=== PATIENT | female | born 1930 | race Caucasian/White ===

== ENCOUNTER 2019-07-29 14:32 | Inpatient (IN) ==
[2019-07-29] MEDS ORDERED: IPRATROPIUM/ALBUTEROL 3 ML AMPUL.NEB NEB ONE ×2 (14:37→16:55)
[2019-07-29 15:23] LABS: Basophils # (Auto) 0.05 K/mcL (0.00-0.30); Basophils % (Auto) 0.4 % (0.0-2.0); Eosinophils # (Auto) 0.05 K/mcL (0.00-0.70); Eosinophils % (Auto) 0.4 % (0.0-7.0); Granulocytes % (Auto) 77.8 % (38.0-78.0); Hematocrit 39.6 % (34.1-44.9); Hemoglobin 11.3 g/dL (11.2-15.7); Lymphocytes # (Auto) 1.41 K/mcL (1.50-4.80); Lymphocytes % (Auto) 11.7 % (15.5-49.0); Mean Cell Volume 96.1 fL (80.0-100.0); Mean Corpuscular HGB Conc 28.5 g/dL (31.0-36.0); Mean Platelet Volume 10.9 fL (7.4-10.4); Monocytes # (Auto) 1.17 K/mcL (0.10-0.90); Monocytes % (Auto) 9.7 % (1.0-12.0); Platelet Count 174 K/mcL (140-440); RBC 4.12 M/mcL (3.59-5.38); Red Cell Distribution Width 22.9 % (11.5-14.5); WBC 12.1 K/mcL (4.50-11.00)
[2019-07-29 15:38] LABS: ALT/SGPT 19 U/l (0-40); AST/SGOT 26 U/l (0-37); Albumin 4.2 gm/dL (3.2-5.2); Albumin/Globulin Ratio 1.1 (1.0-2.3); Alkaline Phosphatase 225 U/L (39-117); Bilirubin,Total 1.4 mg/dL (0.0-1.0); Blood Urea Nitrogen 17 mg/dl (8-23); Calcium 9.6 mg/dl (8.6-10.4); Carbon Dioxide 30 mmol/L (22-30); Chloride 96 mmol/L (96-108); Glomerular Filtration Rate 37; Glucose 149 mg/dL (70-105)
--- NOTE | 2019-07-29 15:52 | Emergency Department Note ---
SOB HPI - General Chief Complaint: Shortness of Breath/Dyspnea Stated Complaint: shortness of breath Time Seen by Provider: 07/29/19 15:37 Source: patient Mode of arrival: wheelchair Limitations: no limitations - History of Present Illness 89-year old patient presenting with chief complaint of dyspnea. Patient's dyspnea arose over the course of several days. Patient with associated symptoms of cough, and orthopnea. Pt was seen Friday and with excellent benefit. Pt arrives after cardiology appointment today recommended she be evaluated in the ED. Past medical history is significant for cardiovascular disease/CHF, deconditioning. This patient's dyspnea was exacerbated by exertion within 50-100 feet of walking or several minutes of exercise. Also was associated with a nocturnal component. Symptoms are continuous. Additional associated symptoms such as cough, sputum production, nasal congestion, chest pain, peripheral edema, joint swelling were also inquired and negative pt is having generalized weakness. Patient primarily with dyspnea sensation of air hunger/sensation of suffocation. - Related Data Home Medications Medication Instructions Recorded Confirmed Acetaminophen [Shake That Ache] 500 mg PO PRN PRN 03/06/16 07/29/19 Atorvastatin [Lipitor] 40 mg PO HS 03/06/16 07/29/19 Fexofenadine [Kisha] 180 mg PO PRN PRN 03/06/16 07/29/19 Nitroglycerin [Nitrostat] 0.4 mg SL PRN PRN 03/06/16 07/29/19 Omeprazole [PriLOSEC] 20 mg PO DAILY 03/06/16 07/29/19 aspirin 81 mg tablet,delayed 162 mg PO QDAY 02/19/19 07/29/19 release baclofen 10 mg tablet 10 mg PO BID 02/19/19 07/29/19 escitalopram oxalate 10 mg tablet 10 mg PO QDAY 06/23/19 07/29/19 furosemide 20 mg tablet 20 mg PO QAM 06/23/19 07/29/19 hydrocortisone 10 mg tablet 15 mg PO BID tab 06/23/19 07/29/19 metoprolol succinate 25 mg capsule 25 mg PO QHS each 06/23/19 07/29/19 sprinkle, ext. release 24 hr ondansetron HCl 4 mg tablet 4 mg PO Q8H PRN 06/23/19 07/29/19 polyethylene glycol 3350 17 17 g PO QDAY 06/23/19 07/29/19 gram/dose oral powder tramadol 50 mg tablet 50 mg PO Q8H PRN tab 06/23/19 07/29/19 Allergies Allergy/AdvReac Type Severity Reaction Status Date / Time codeine Allergy Severe breathing Verified 07/29/19 20:53 problems, nausea, hives iodine Allergy Severe breathing Verified 07/29/19 20:53 problems, hives lidocaine Allergy Severe Difficulty Verified 07/29/19 14:35 Breathing morphine Allergy Severe breathing Verified 07/29/19 20:53 problems, nausea, loc Penicillins Allergy Mild Rash Verified 07/29/19 20:53 povidone Allergy Mild rash Verified 07/29/19 20:53 Sulfa (Sulfonamide Allergy Mild Rash Verified 07/29/19 20:53 Antibiotics) Influenza Virus Vaccines Allergy Unknown unknown Verified 07/29/19 14:35 hydrocodone AdvReac Intermediate LOC Verified 07/29/19 20:53 Review of Systems All systems ED: reviewed and negative except as stated. Past Medical History - Past Medical History PMFSH Narrative: All Active Problems (Last Updated 06/23/19 @ 13:50 by Latonya Brewer CMA) Iron deficiency anemia (Chronic) Acute renal failure superimposed on stage 4 chronic kidney disease (Chronic) Chronic Kidney Disease (Chronic) Acute kidney injury with acute tubular necrosis (Acute) Frequent falls (Chronic) Syncope (Chronic) Neck pain (Chronic) GERD (gastroesophageal reflux disease) (Chronic) Adrenal insufficiency (Chronic) Panhypopituitarism (Chronic) Hypercholesterolemia (Chronic) Hypertension (Chronic) Dilated cardiomyopathy (Chronic) Orthostatic syncope (Chronic) UTI (urinary tract infection) (Chronic) Tricuspid insufficiency (Chronic) Mitral insufficiency (Chronic) CAD (coronary artery disease) (Chronic) CHF (congestive heart failure) (Chronic) Nausea and vomiting (Chronic) Extremity edema (Chronic) Irregular cardiac rhythm (Chronic) Murmur, cardiac (Chronic) A-fib (Chronic) Hyponatremia (Chronic) Hyperkalemia (Chronic) Digoxin toxicity (Chronic) Hypotension (Chronic) Confusion (Chronic) Easy bruising (Chronic) Lightheadedness (Chronic) Weakness (Chronic) SOB (shortness of breath) (Chronic) Fatigue (Chronic) Other acute kidney failure (Chronic) - Social History smoking status: Never smoker Physical Exam Vital signs and evaluated for evidence of hypoxia pt with minimal hypoxia on RA placed on 2L NC is not on oxygen at home General: Alert, interactive, appropriate Head: Atraumatic, normocephalic Eyes: Extraocular movements intact, PERRLA Neck: Trachea midline, full range of motion Chest: Symmetrical chest wall rise, diffuse coarse breath sounds Cardiovascular: Patient with excellent perfusion to the extremities, regular rate and rhythm without M/R/G Abdomen: Nontender nondistended normoactive bowel sounds no masses no hepatosplenomegaly no rebound no guarding Extremities: Full range of motion joints, warm well perfused, +2 pitting edema Neuro: Alert, oriented x3, cranial nerves II through XII grossly intact Psychiatric: Normal affect normal mood Limitations: no limitations Course Vital Signs Temperature 97.9 F 07/29/19 14:32 Pulse Rate 72 07/29/19 14:32 Respiratory Rate 16 07/29/19 14:32 Blood Pressure 123/83 07/29/19 14:32 Pulse Oximetry (%) 98 07/29/19 14:32 Temperature 97.9 F 07/29/19 20:21 Pulse Rate 89 07/29/19 22:14 Respiratory Rate 22 07/29/19 22:14 Blood Pressure 116/84 07/29/19 20:21 Pulse Oximetry (%) 95 07/29/19 20:21 Shortness of Breath/Dyspnea - MDM Narrative Medical decision making narrative: Acute dyspnea differential diagnosis considered in this case included MA, heart failure, cardiac tamponade, bronchospasm, pulmonary embolism, pneumothorax, pneumonia or infection, and upper airway obstruction. After review of chart and patient history/physical exam/labs as well as imaging the differential diagnosis addressed was acute hypoxic respiratory failure, COPD exacerbation, pneumonia, sepsis, pulmonary edema, pneumothorax, metabolic acidosis, acute respiratory distress syndrome, panic attack, airflow obstruction, restrictive lung disease, aspiration, congestive heart failure, hypercapnia, influenza, bronchitis, upper respiratory infection, pulmonary embolism, cardiac tamponade, valvular obstruction, MA/ACS, and arrhythmia in my medical opinion this patient has dyspnea that reasonably does require admission to the hospital. Discussed case with the hospitalist Dr. Gandara and the consensus medical opinion is to admit the patient to the hospital for management of her CHF exacerbation. Pt given Lasix in the ED, pt also noted to be hypoxic at time of evaluation. - Lab Data Result diagrams: 07/29/19 14:48 07/29/19 14:48 Lab Results 07/29/19 07/29/19 07/29/19 Range/Units 14:48 14:48 14:48 WBC 12.1 H (4.50-11.00) K/mcL RBC 4.12 (3.59-5.38) M/mcL Hgb 11.3 (11.2-15.7) g/dL Hct 39.6 (34.1-44.9) % MCV 96.1 (80.0-100.0) fL MCH 27.4 (26.0-34.0) pg MCHC 28.5 L (31.0-36.0) g/dL RDW 22.9 H (11.5-14.5) % Plt Count 174 (140-440) K/mcL MPV 10.9 H (7.4-10.4) fL Gran % 77.8 (38.0-78.0) % Lymph % (Auto) 11.7 L (15.5-49.0) % Catron % (Auto) 9.7 (1.0-12.0) % Eos % (Auto) 0.4 (0.0-7.0) % Baso % (Auto) 0.4 (0.0-2.0) % Gran # 9.38 H (1.80-8.00) K/mcL Lymph # (Auto) 1.41 L (1.50-4.80) K/mcL Catron # (Auto) 1.17 H (0.10-0.90) K/mcL Eos # (Auto) 0.05 (0.00-0.70) K/mcL Baso # (Auto) 0.05 (0.00-0.30) K/mcL ESR (0-20) mm/hr Sodium 142 (133-145) mmol/L Potassium 3.1 L (3.3-5.1) mmol/L Chloride 96 (96-108) mmol/L Carbon Dioxide 30 (22-30) mmol/L Anion Gap 16.0 (8-16) BUN 17 (8-23) mg/dl Creatinine 1.3 H (0.6-1.1) mg/dl GFR Calculation 37 Glucose 149 H (70-105) mg/dL Calcium 9.6 (8.6-10.4) mg/dl Total Bilirubin 1.4 H (0.0-1.0) mg/dL AST 26 (0-37) U/l ALT 19 (0-40) U/l Alkaline Phosphatase 225 H (39-117) U/L Troponin T (0-0.03) ng/ml C-Reactive Protein (0.0-0.8) mg/dl NT-Pro-B Natriuret Pep 74773.0 H (0-450) pg/ml Total Protein 8.2 (5.9-8.4) gm/dL Albumin 4.2 (3.2-5.2) gm/dL Globulin 4.0 H (2.2-3.7) gm/dL Albumin/Globulin Ratio 1.1 (1.0-2.3) Procalcitonin (<0.10) ng/mL Urine Color Urine Appearance Urine pH (5.0-9.0) Ur Specific [place] (1.000-1.035) Urine Protein (NEG) mg/dL Urine Glucose (UA) (NEG) mg/dL Urine Ketones (NEG) mg/dL Urine Occult Blood (<0.03) mg/dL Urine Nitrate (NEG) Urine Bilirubin (NEG) mg/dL Urine Urobilinogen (NEG) mg/dL Ur Leukocyte Esterase (NEG) /uL Urine RBC (0-1) /hpf Urine WBC (0-4) /hpf Ur Squamous Epith Cells (0-4) /hpf Ur Transition Epith Cell (0-2) /hpf Urine Bacteria (0) /hpf Hyaline Casts (0-2) /lpf Urine Mucus (0) /hpf Ur Culture Indicated? Mycoplasma pneumon IgM (NEGATIVE) 07/29/19 07/29/19 07/29/19 Range/Units 14:48 14:48 14:48 WBC (4.50-11.00) K/mcL RBC (3.59-5.38) M/mcL Hgb (11.2-15.7) g/dL Hct (34.1-44.9) % MCV (80.0-100.0) fL MCH (26.0-34.0) pg MCHC (31.0-36.0) g/dL RDW (11.5-14.5) % Plt Count (140-440) K/mcL MPV (7.4-10.4) fL Gran % (38.0-78.0) % Lymph % (Auto) (15.5-49.0) % Catron % (Auto) (1.0-12.0) % Eos % (Auto) (0.0-7.0) % Baso % (Auto) (0.0-2.0) % Gran # (1.80-8.00) K/mcL Lymph # (Auto) (1.50-4.80) K/mcL Catron # (Auto) (0.10-0.90) K/mcL Eos # (Auto) (0.00-0.70) K/mcL Baso # (Auto) (0.00-0.30) K/mcL ESR 67 H (0-20) mm/hr Sodium (133-145) mmol/L Potassium (3.3-5.1) mmol/L Chloride (96-108) mmol/L Carbon Dioxide (22-30) mmol/L Anion Gap (8-16) BUN (8-23) mg/dl Creatinine (0.6-1.1) mg/dl GFR Calculation Glucose (70-105) mg/dL Calcium (8.6-10.4) mg/dl Total Bilirubin (0.0-1.0) mg/dL AST (0-37) U/l ALT (0-40) U/l Alkaline Phosphatase (39-117) U/L Troponin T 0.02 (0-0.03) ng/ml C-Reactive Protein 2.7 H (0.0-0.8) mg/dl NT-Pro-B Natriuret Pep (0-450) pg/ml Total Protein (5.9-8.4) gm/dL Albumin (3.2-5.2) gm/dL Globulin (2.2-3.7) gm/dL Albumin/Globulin Ratio (1.0-2.3) Procalcitonin (<0.10) ng/mL Urine Color Urine Appearance Urine pH (5.0-9.0) Ur Specific [place] (1.000-1.035) Urine Protein (NEG) mg/dL Urine Glucose (UA) (NEG) mg/dL Urine Ketones (NEG) mg/dL Urine Occult Blood (<0.03) mg/dL Urine Nitrate (NEG) Urine Bilirubin (NEG) mg/dL Urine Urobilinogen (NEG) mg/dL Ur Leukocyte Esterase (NEG) /uL Urine RBC (0-1) /hpf Urine WBC (0-4) /hpf Ur Squamous Epith Cells (0-4) /hpf Ur Transition Epith Cell (0-2) /hpf Urine Bacteria (0) /hpf Hyaline Casts (0-2) /lpf Urine Mucus (0) /hpf Ur Culture Indicated? Mycoplasma pneumon IgM (NEGATIVE) 07/29/19 07/29/19 07/29/19 Range/Units 14:48 14:48 17:06 WBC (4.50-11.00) K/mcL RBC (3.59-5.38) M/mcL Hgb (11.2-15.7) g/dL Hct (34.1-44.9) % MCV (80.0-100.0) fL MCH (26.0-34.0) pg MCHC (31.0-36.0) g/dL RDW (11.5-14.5) % Plt Count (140-440) K/mcL MPV (7.4-10.4) fL Gran % (38.0-78.0) % Lymph % (Auto) (15.5-49.0) % Catron % (Auto) (1.0-12.0) % Eos % (Auto) (0.0-7.0) % Baso % (Auto) (0.0-2.0) % Gran # (1.80-8.00) K/mcL Lymph # (Auto) (1.50-4.80) K/mcL Catron # (Auto) (0.10-0.90) K/mcL Eos # (Auto) (0.00-0.70) K/mcL Baso # (Auto) (0.00-0.30) K/mcL ESR (0-20) mm/hr Sodium (133-145) mmol/L Potassium (3.3-5.1) mmol/L Chloride (96-108) mmol/L Carbon Dioxide (22-30) mmol/L Anion Gap (8-16) BUN (8-23) mg/dl Creatinine (0.6-1.1) mg/dl GFR Calculation Glucose (70-105) mg/dL Calcium (8.6-10.4) mg/dl Total Bilirubin (0.0-1.0) mg/dL AST (0-37) U/l ALT (0-40) U/l Alkaline Phosphatase (39-117) U/L Troponin T (0-0.03) ng/ml C-Reactive Protein (0.0-0.8) mg/dl NT-Pro-B Natriuret Pep (0-450) pg/ml Total Protein (5.9-8.4) gm/dL Albumin (3.2-5.2) gm/dL Globulin (2.2-3.7) gm/dL Albumin/Globulin Ratio (1.0-2.3) Procalcitonin 0.14 (<0.10) ng/mL Urine Color Yellow Urine Appearance Hazy Urine pH 5.0 (5.0-9.0) Ur Specific [place] 1.016 (1.000-1.035) Urine Protein 100 A (NEG) mg/dL Urine Glucose (UA) Negative (NEG) mg/dL Urine Ketones Neg (NEG) mg/dL Urine Occult Blood 0.03 A (<0.03) mg/dL Urine Nitrate Neg (NEG) Urine Bilirubin Neg (NEG) mg/dL Urine Urobilinogen 2.0 A (NEG) mg/dL Ur Leukocyte Esterase 250 A (NEG) /uL Urine RBC 1 (0-1) /hpf Urine WBC 128 H (0-4) /hpf Ur Squamous Epith Cells 3 (0-4) /hpf Ur Transition Epith Cell 1 (0-2) /hpf Urine Bacteria 0 (0) /hpf Hyaline Casts 21 H (0-2) /lpf Urine Mucus Mod (0) /hpf Ur Culture Indicated? Yes Mycoplasma pneumon IgM Negative (NEGATIVE) - EKG Data EKG results narrative: EKG: Rate: 75, MA: N/A paced rhythm Disposition Pt seen by VETERINARY SCIENCE TEACHER/PA only: No Clinical Impression: Acute exacerbation of CHF (congestive heart failure) Qualifiers: Heart failure type: combined systolic and diastolic Qualified Code(s): I50.43 - Acute on chronic combined systolic (congestive) and diastolic (congestive) heart failure Disposition: Xfer As Inpt ([facility]) Condition: Fair
--- NOTE | 2019-07-29 16:10 | XRay Report ---
CLINICAL INFORMATION: shortness of breath COMPARISON: 07/24/2019 and 04/05/2019 FINDINGS: The heart is mildly enlarged, but unchanged. Pacemaker and leads in stable satisfactory position. Mediastinum is unremarkable. Upper lobe pulmonary vessels are slightly distended compared to a baseline x-ray from 04/05/2019. There is minor airspace disease in the left base more likely atelectasis than developing infiltrate. IMPRESSION: Borderline CHF or volume overload Small region of infiltrate or atelectasis left base Interpreted and Authenticated by: Sathya Raza 07/29/19
[2019-07-29] MEDS ORDERED: FUROSEMIDE 40 MG/4 ML VIAL IV ONE (17:49)
[2019-07-29] MEDS ORDERED: POTASSIUM CHLORIDE 20 MEQ TABLET PO ONE (17:50)
[2019-07-29 18:03] LABS: Appearance,Urine HAZY; Bacteria,Urine 0 /hpf (0); Bilirubin,Urine NEG (NEG); Color,Urine YELLOW; Culture Indicated,Urine YES; Glucose,Urine (UA) NEGATIVE (NEG); Ketones,Urine NEG (NEG); Leukocyte Esterase,Urine 250 /uL (NEG); Mucus,Urine MOD /hpf (0); Nitrate,Urine NEG (NEG); Protein,Urine 100 mg/dL (NEG); Specific Gravity,Urine 1.016 (1.000-1.035); Urine Blood 0.03 mg/dL (<0.03); Urine Hyaline Cast 21 /lpf (0-2); Urine RBC 1 /hpf (0-1); Urine Squamous Epithelial Cell 3 /hpf (0-4); Urine Transitional Epi Cells 1 /hpf (0-2); Urine WBC 128 /hpf (0-4)
[2019-07-29] MEDS ORDERED: traMADol 50 MG TABLET PO ONE (19:18)
--- NOTE | 2019-07-29 19:42 | Internal Med History&Physical ---
Medical - H&P: HPI Patient information: Note initiated : 07/29/19 at 7:36 pm Service Date, if different from initiated Date: [] Patient: Glenis Rosario a 89 y/o F admitted on for shortness of breath. Chief Complaint: [] Chief complaint: Shortness of breath History of present illness: Ms. Rosario is a 89 year old F with a history of chronic kidney disease/iron deficiency anemia/adrenal insufficiency who presents to the ER directly from cardiology office visit today after she was found increasingly short of breath weak fatigued. Patient lives at assisted living at [place] and frequently eats will stop by her daughter Soumya who lives in town. Patient's daughter noticed a steady decline in functionality over the last 4 days to the point she could barely function or get out of bed, patient also has associated cough along with shortness of breath and yellow productive sputum. However there is no associated fever chills or rashes. Initial work-up in the ER was consistent with hypoxic hypercapnic respiratory failure consistent with COPD exacerbation and chest imaging suggestive of fluid overload with CHF. White count 12.1 with ABG 7.49/45/77 on 2 L oxygen. Patient received a dose of Lasix along with bronchodilators with slight improvement. Subsequently hospitalist service was consulted At time evaluation patient is accompanied with her daughter Soumya. Patient is e xtremely fatigued lethargic unable to provide any history but was able to participate in review of systems. She denies sick contacts. She denies flulike symptoms. She endorses to cough but denies shaking chills, diarrhea, bloody stool, dysuria or abdominal pain. She further denies chest pain headache photophobia. 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 fib with overdiuresis dehydration SANTIAGO inhibitor and hypotension leading to acute renal failure and a peak creatinine of almost 8. Due to the number of potentially reversible components dialysis was withheld the patient was hydrated and she recovered in about a week's time back to CKD 3-4 where she is now Chronic Kidney Disease (Chronic) In the setting of hypertension and congestive heart failure, afib Acute kidney injury with acute tubular necrosis (Acute) Hypotension and bradycardia led to decreased GFR and then digoxin accumulation and toxicity, worsening the BP and GFR and prolonging the re covery time. Baseline SCr <1.0 and Zenith Scr 8.5 Frequent falls (Chronic) Syncope (Chronic) Neck pain (Chronic) GERD (gastroesophageal reflux disease) (Chronic) Adrenal insufficiency (Chronic) I suspect this was iatrogenic from exogenous glucocorticoids used in the treatment for her autoimmune process and is followed by an ticket collector in [place] Panhypopituitarism (Chronic) Hypercholesterolemia (Chronic) Hypertension (Chronic) Dilated cardiomyopathy (Chronic) Orthostatic syncope (Chronic) UTI (urinary tract infection) (Chronic) Tricuspid insufficiency (Chronic) Mitral insufficiency (Chronic) CAD (coronary artery disease) (Chronic) CHF (congestive heart failure) (Chronic) Nausea and vomiting (Chronic) Extremity edema (Chronic) Irregular cardiac rhythm (Chronic) Murmur, cardiac (Chronic) A-fib (Chronic) Hyponatremia (Chronic) Hyperkalemia (Chronic) Digoxin toxicity (Chronic) Hypotension (Chronic) Confusion (Chronic) Easy bruising (Chronic) Lightheadedness (Chronic) Weakness (Chronic) SOB (shortness of breath) (Chronic) Fatigue (Chronic) Other acute kidney failure (Chronic) Surgical History (Updated 06/23/19 @ 13:51 by Latonya Brewer [facility]) Pacemaker (Acute ~03/2019) History of appendectomy (Chronic) History of bilateral cataract extraction (Chronic) History of bilateral hip replacements (Chronic) History of colonoscopy with polypectomy (Chronic) 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) History of partial hysterectomy (Chronic) 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) Family History Other No pertinent family history Social History (Updated 06/23/19 @ 15:05 by Paulie Singer MD) marital status: smoking status: Never smoker alcohol intake frequency: holiday/special occasion only Medical - H&P: Meds Home Medications Medication Instructions Recorded Confirmed Type Acetaminophen [Shake That Ache] 500 mg PO PRN PRN 03/06/16 07/29/19 History Atorvastatin [Lipitor] 40 mg PO HS 03/06/16 07/29/19 History Fexofenadine [Kisha] 180 mg PO PRN PRN 03/06/16 07/29/19 History Nitroglycerin [Nitrostat] 0.4 mg SL PRN PRN 03/06/16 07/29/19 History Omeprazole [PriLOSEC] 20 mg PO DAILY 03/06/16 07/29/19 History aspirin 81 mg tablet,delayed 162 mg PO QDAY 02/19/19 07/29/19 History release baclofen 10 mg tablet 10 mg PO BID 02/19/19 07/29/19 History escitalopram oxalate 10 mg tablet 10 mg PO QDAY 06/23/19 07/29/19 History furosemide 20 mg tablet 20 mg PO QAM 06/23/19 07/29/19 History hydrocortisone 10 mg tablet 15 mg PO BID tab 06/23/19 07/29/19 History metoprolol succinate 25 mg capsule 25 mg PO QHS each 06/23/19 07/29/19 History sprinkle, ext. release 24 hr ondansetron HCl 4 mg tablet 4 mg PO Q8H PRN 06/23/19 07/29/19 History polyethylene glycol 3350 17 17 g PO QDAY 06/23/19 07/29/19 History gram/dose oral powder tramadol 50 mg tablet 50 mg PO Q8H PRN tab 06/23/19 07/29/19 History Allergies Allergy/AdvReac Type Severity Reaction Status Date / Time lidocaine Allergy Severe Difficulty Verified 07/29/19 14:35 Breathing Penicillins Allergy Intermediate Rash Verified 07/29/19 14:35 Sulfa (Sulfonamide Allergy Intermediate Rash Verified 07/29/19 14:35 Antibiotics) codeine Allergy Unknown breathing Verified 07/29/19 14:35 problems, nausea, hives hydrocodone Allergy Unknown LOC Verified 07/29/19 14:35 Influenza Virus Vaccines Allergy Unknown unknown Verified 07/29/19 14:35 iodine Allergy Unknown breathing Verified 07/29/19 14:35 problems, hives morphine Allergy Unknown breathing Verified 07/29/19 14:35 problems, nausea, loc povidone Allergy Unknown rash Verified 07/29/19 14:35 Medical - H&P: Exam - Constitutional Vitals: Temp Pulse Resp BP Pulse Ox 97.9 F 70 17 133/93 99 07/29/19 14:32 07/29/19 18:01 07/29/19 18:01 07/29/19 18:01 07/29/19 18:01 General appearance: moderate distress Exam: Fatigue lethargic barely able to open eyes Unable to talk in full sentences Head normocephalic Oral cavity dry No ear nose discharge Neck no JVD or lymphadenopathy S1-S2 regular rhythm ESM grade 1 Prolonged expiratory rhonchi/deep late inspiratory crackles Abdomen soft nontender Lower extremity no cyanosis clubbing but significant lymphedema wrapped in compressive stocking/[place] wraps Psych anxious but no agitation Neuro moving all 4 extremities Medical - H&P: Reslt - Labs CBC & Chem 7: 07/29/19 14:48 07/29/19 14:48 Labs: Short CBC 07/29/19 Range/Units 14:48 WBC 12.1 H (4.50-11.00) K/mcL Hgb 11.3 (11.2-15.7) g/dL Hct 39.6 (34.1-44.9) % Plt Count 174 (140-440) K/mcL BMP 07/29/19 14:48 Sodium 142 Potassium 3.1 L Chloride 96 Carbon Dioxide 30 BUN 17 Creatinine 1.3 H Glucose 149 H Calcium 9.6 Cardiac Enzymes 07/29/19 Range/Units 14:48 Troponin T 0.02 (0-0.03) ng/ml Liver Function 07/29/19 Range/Units 14:48 Total Bilirubin 1.4 H (0.0-1.0) mg/dL AST 26 (0-37) U/l ALT 19 (0-40) U/l Alkaline Phosphatase 225 H (39-117) U/L Albumin 4.2 (3.2-5.2) gm/dL Urine 07/29/19 Range/Units 17:06 Urine Color Yellow Urine Appearance Hazy Urine pH 5.0 (5.0-9.0) Ur Specific [place] 1.016 (1.000-1.035) Urine Protein 100 A (NEG) mg/dL Urine Glucose (UA) Negative (NEG) mg/dL Medical - H&P: A/P (1) COPD exacerbation Current visit: Yes Status: Acute * COPD exacerbation-as evident on blood gas. Continue bronchodilators/steroids/pulmonary toilet * Acute decompensated heart failure-obtain echocardiogram from cardiology office. Continue beta-alfredo/diuretics/aspirin and statin * History of renal insufficiency on hydrocortisone at home. Currently on IV steroids * GERD on PPI * History of chronic anemia follows up with Dr. Caba oncology * Chronic kidney disease stage III managed by Dr. Barber as outpatient * History of NYHA class III systolic CHF managed by Dr. Diaz cardiology * DNR * Prophylaxis heparin Plan * Inpatient admission * Steroids bronchodilators/antibiotic coverage * Aggressive diuresis * Pre-existing medical condition management home medications * PT OT nutrition support * Discharge planning
[2019-07-29] MEDS ORDERED: NITROGLYCERIN 0.4 MG TAB.SUBL SL PRN (20:22)
[2019-07-29] MEDS ORDERED: MAGNESIUM SULFATE 2 GM/50 ML BAG IV PRN (20:22)
[2019-07-29] MEDS ORDERED: POTASSIUM CHLORIDE 20 MEQ PACKET PO PRN (20:22)
[2019-07-29] MEDS ORDERED: ACETAMINOPHEN 650 MG/65 ML BOTTLE IV PRN (20:22)
[2019-07-29] MEDS ORDERED: POLYETHYLENE GLYCOL 3350 17 GM PACKET PO PRN (20:22)
[2019-07-29] MEDS ORDERED: ONDANSETRON 4 MG/2 ML VIAL IV PRN (20:22)
[2019-07-29] MEDS ORDERED: ONDANSETRON 4 MG ODT TABLET SL PRN (20:22)
[2019-07-29] MEDS ORDERED: hydrALAZINE 20 MG/ML VIAL IV PRN (20:22)
[2019-07-29] MEDS ORDERED: BISACODYL 10 MG SUPP.RECT PR PRN (20:22)
[2019-07-29] MEDS ORDERED: guaiFENesin/CODEINE 10 ML UDC PO PRN (20:22)
[2019-07-29] MEDS ORDERED: FEXOFENADINE 180 MG TABLET PO PRN (20:22)
[2019-07-29] MEDS ORDERED: ACETAMINOPHEN 325 MG TABLET PO PRN (20:22)
[2019-07-29] MEDS ORDERED: MELATONIN 3 MG TABLET PO PRN (20:22)
[2019-07-29] MEDS ORDERED: METOPROLOL TARTRATE 5 MG/5 ML VIAL IV PRN (20:22)
[2019-07-29] MEDS: LEVOFLOXACIN 750 MG/150 ML BAG IV SCH (21:48)
[2019-07-29] MEDS: 0.9 % SODIUM CHLORIDE 500 ML IV SCH (21:51)
[2019-07-29] MEDS: DOCUSATE SODIUM 100 MG CAPSULE PO SCH (22:04)
[2019-07-29] MEDS: SENNOSIDES/DOCUSATE SODIUM 1 TAB TABLET PO SCH (22:05)
[2019-07-29] MEDS: METOPROLOL SUCCINATE 25 MG TAB.XL.24H PO SCH (22:05)
[2019-07-29] MEDS: ATORVASTATIN 40 MG TABLET PO SCH (22:05)
[2019-07-29] MEDS: BACLOFEN 10 MG TABLET PO SCH (22:05)
[2019-07-29] MEDS: HEPARIN 5,000 UNIT/ML VIAL SQ SCH (22:08)
[2019-07-29] MEDS: IPRATROPIUM/ALBUTEROL 3 ML AMPUL.NEB NEB SCH (22:08)
[2019-07-29] MEDS: methylPREDNISolone SOD SUCC 125 MG/2 ML VIAL IV SCH (22:08)
[2019-07-29] MEDS: 0.9 % SODIUM CHLORIDE 10 ML SYRINGE IV SCH (22:10)
[2019-07-29] MEDS: BUDESONIDE 0.5 MG/2 ML AMPUL.NEB NEB SCH (22:12)
[2019-07-30] MEDS: IPRATROPIUM/ALBUTEROL 3 ML AMPUL.NEB NEB SCH ×3 (03:45→12:57)
[2019-07-30] MEDS: 0.9 % SODIUM CHLORIDE 10 ML SYRINGE IV SCH ×3 (06:03→21:30)
[2019-07-30 06:50] LABS: Hematocrit 32.5 % (34.1-44.9); Hemoglobin 9.3 g/dL (11.2-15.7); Mean Corpuscular HGB Conc 28.6 g/dL (31.0-36.0); Mean Platelet Volume 10.7 fL (7.4-10.4); Platelet Count 145 K/mcL (140-440); RBC 3.42 M/mcL (3.59-5.38); Red Cell Distribution Width 22.6 % (11.5-14.5); WBC 12.9 K/mcL (4.50-11.00)
[2019-07-30 07:16] LABS: Chloride 97 mmol/L (96-108)
[2019-07-30 07:17] LABS: ALT/SGPT 14 U/l (0-40); AST/SGOT 24 U/l (0-37); Albumin 3.2 gm/dL (3.2-5.2); Alkaline Phosphatase 172 U/L (39-117); Bilirubin,Direct 0.4 mg/dL (0.0-0.3); Bilirubin,Total 1.3 mg/dL (0.0-1.0); Blood Urea Nitrogen 16 mg/dl (8-23); Calcium 8.7 mg/dl (8.6-10.4); Carbon Dioxide 29 mmol/L (22-30); Globulin 3.2 gm/dL (2.2-3.7); Glomerular Filtration Rate 41; Glucose 165 mg/dL (70-105); Lactate Dehydrogenase 355 U/L (94-250); Phosphorous 3.4 mg/dL (2.7-4.5); Triglycerides 96 mg/dl (<150); Uric Acid 9.5 mg/dL (2.5-8.0)
[2019-07-30] MEDS: OMEPRAZOLE 20 MG CAPSULE PO SCH (07:33)
[2019-07-30 07:55] LABS: Anisocytosis 3+ (NONE SEEN); Band Neutrophils % 1 % (0-10); Lymphocytes % 7 % (15-49); Monocytes % (Manual) 2 % (1-12); Nucleated Red Blood Cells 1 % (0-0); Platelet Estimate NORMAL (NORMAL); Polychromasia 1+ (NONE SEEN); RBC Morphology ABNORM (NORMAL); Segmented Neutrophils % 90 % (38-78)
[2019-07-30] MEDS: FUROSEMIDE 40 MG/4 ML VIAL IV SCH ×2 (08:22→16:33)
[2019-07-30] MEDS: BUDESONIDE 0.5 MG/2 ML AMPUL.NEB NEB SCH (08:41)
[2019-07-30] MEDS: methylPREDNISolone SOD SUCC 125 MG/2 ML VIAL IV SCH ×2 (08:53→21:30)
[2019-07-30] MEDS: DOCUSATE SODIUM 100 MG CAPSULE PO SCH ×2 (08:54→21:30)
[2019-07-30] MEDS: HEPARIN 5,000 UNIT/ML VIAL SQ SCH ×2 (08:54→21:30)
[2019-07-30] MEDS: ESCITALOPRAM 10 MG TABLET PO SCH (08:55)
[2019-07-30] MEDS: THIAMINE 100 MG TABLET PO SCH (08:55)
[2019-07-30] MEDS: ASPIRIN 81 MG TAB.CHEW PO SCH (08:55)
[2019-07-30] MEDS: FOLIC ACID 1 MG TABLET PO SCH (08:55)
[2019-07-30] MEDS: BACLOFEN 10 MG TABLET PO SCH ×2 (08:55→21:30)
[2019-07-30] MEDS: MULTIVIT,THER IRON,CA,FA & MIN 1 TABLET PO SCH (08:55)
--- NOTE | 2019-07-30 09:52 | Internal Med Progress Note ---
Medical - PN: Subj Patient information: Note initiated : 07/30/19 at 9:50 am Service Date, if different from initiated Date: [] Patient: Glenis Rosario a 89 y/o F admitted on 07/29/19 for shortness of breath. Chief Complaint: [] Interval history: Brief hospital course Ms. Rosario is a 89 year old F with a history of chronic kidney disease/iron deficiency anemia/adrenal insufficiency who presents to the ER directly from cardiology office visit today after she was found increasingly short of breath weak fatigued. Patient lives at [facility] living at [place] and frequently eats will stop by her daughter Soumya who lives in town. Patient's daughter noticed a steady decline in functionality over the last 4 days to the point she could barely function or get out of bed, patient also has associated cough along with shortness of breath and yellow productive sputum. However there is no associated fever chills or rashes. Initial work-up in the ER was consistent with hypoxic hypercapnic respiratory failure consistent with COPD exacerbation and chest imaging suggestive of fluid overload with CHF. White count 12.1 with ABG 7.49/45/77 on 2 L oxygen. Patient received a dose of Lasix along with bronchodilators with slight improvement. Subsequently hospitalist service was consulted At time evaluation patient is accompanied with her daughter Soumya. Patient is extremely fatigued lethargic unable to provide any history but was able to participate in review of systems. She denies sick contacts. She denies flulike symptoms. She endorses to cough but denies shaking chills, diarrhea, bloody stool, dysuria or abdominal pain. She further denies chest pain headache photophobia. 07/30-patient doing a lot better. More awake alert. Improved shortness of breath. Able to talk in full sentences. White count 12.9. Diuresed over 14,000 cc net negative fluid balance. Continuing steroids/antibiotics. Hemodynamic stable currently on 2 L oxygen. Potassium improved to 3.6. Creatinine 1.2. Continues PT OT/nutrition support - Constitutional Vitals: Vital Signs Temp Pulse Resp BP Pulse Ox 97.1 F 78 15 103/65 94 07/30/19 08:00 07/30/19 08:57 07/30/19 08:57 07/30/19 03:58 07/30/19 08:57 Period Temp Pulse Resp BP Sys/Pichardo Pulse Ox Last 24 Hr 97.1 F-98.3 F 53-89 15-39 103-149/65-119 88-100 Intake and Output 07/29/19 07/30/19 07/30/19 21:59 05:59 13:59 Intake Total 150 360 Output Total 1125 425 Balance -1125 -737 360 Weight 174 lb 1.6 oz Intake & Output: Intake & Output 07/29/19 07/30/19 07/30/19 21:59 05:59 13:59 Intake Total 150 360 Output Total 1125 425 Balance -1125 -128 360 Weight 174 lb 1.6 oz Intake: IV 150 Oral 360 Output: Void Amount 1125 425 Other: Meal Breakfast Percent of Meal Consumed 50% Feeding Ability Assist with Tray Set Up Urine Appearance Clear Clear Urine Color Bright Yellow Bright Yellow General appearance: no acute distress Exam: Alert oriented Sitting on chair Nonlabored breathing Able to talk in full sentences Lymphedema improved Persistent rhonchi/basilar crackles but improved since previous day Medical - PN: Obj Da - Labs CBC & Chem 7: 07/30/19 05:25 07/30/19 05:25 Labs: Abnormal Lab Results 07/30/19 07/30/19 07/29/19 05:25 05:25 17:06 WBC 12.9 H RBC 3.42 L Hgb 9.3 L Hct 32.5 L MCHC 28.6 L RDW 22.6 H MPV 10.7 H Lymph % (Auto) Gran # Lymph # (Auto) [place] # (Auto) Seg Neutrophils % 90 H Lymphocytes % 7 L Nucleated RBCs 1 H RBC Morphology Abnorm A Polychromasia 1+ A Anisocytosis 3+ A ESR Potassium Creatinine 1.2 H Glucose 165 H Uric Acid 9.5 H Total Bilirubin 1.3 H Direct Bilirubin 0.4 H GGT 92 H Alkaline Phosphatase 172 H Lactate Dehydrogenase 355 H C-Reactive Protein NT-Pro-B Natriuret Pep Globulin Urine Protein 100 A Urine Occult Blood 0.03 A Urine Urobilinogen 2.0 A Ur Leukocyte Esterase 250 A Urine WBC 128 H Hyaline Casts 21 H 07/29/19 07/29/19 07/29/19 14:48 14:48 14:48 WBC RBC Hgb Hct MCHC RDW MPV Lymph % (Auto) Gran # Lymph # (Auto) [place] # (Auto) Seg Neutrophils % Lymphocytes % Nucleated RBCs RBC Morphology Polychromasia Anisocytosis ESR 67 H Potassium Creatinine Glucose Uric Acid Total Bilirubin Direct Bilirubin GGT Alkaline Phosphatase Lactate Dehydrogenase C-Reactive Protein 2.7 H NT-Pro-B Natriuret Pep 21516.0 H Globulin Urine Protein Urine Occult Blood Urine Urobilinogen Ur Leukocyte Esterase Urine WBC Hyaline Casts 07/29/19 07/29/19 14:48 14:48 WBC 12.1 H RBC Hgb Hct MCHC 28.5 L RDW 22.9 H MPV 10.9 H Lymph % (Auto) 11.7 L Gran # 9.38 H Lymph # (Auto) 1.41 L [place] # (Auto) 1.17 H Seg Neutrophils % Lymphocytes % Nucleated RBCs RBC Morphology Polychromasia Anisocytosis ESR Potassium 3.1 L Creatinine 1.3 H Glucose 149 H Uric Acid Total Bilirubin 1.4 H Direct Bilirubin GGT Alkaline Phosphatase 225 H Lactate Dehydrogenase C-Reactive Protein NT-Pro-B Natriuret Pep Globulin 4.0 H Urine Protein Urine Occult Blood Urine Urobilinogen Ur Leukocyte Esterase Urine WBC Hyaline Casts Meds: Medications Acetaminophen (Tylenol) 650 mg PO Q4-6HP PRN; Protocol PRN Reason: Per Pain Protocol/Fever > 101 Albuterol/Ipratropium (Duoneb) 3 ml NEB Q4HRT [facility] Last Admin: 07/30/19 08:41 Dose: 3 ml Documented by: Aspirin (Aspirin) 162 mg PO QDAY [facility] Last Admin: 07/30/19 08:55 Dose: 162 mg Documented by: Atorvastatin Calcium (Lipitor) 40 mg PO HS [facility] Last Admin: 07/29/19 22:05 Dose: 40 mg Documented by: Baclofen (Lioresal) 10 mg PO BID [facility] Last Admin: 07/30/19 08:55 Dose: 10 mg Documented by: Bisacodyl (Dulcolax) 10 mg [place] Q2-3DAYS PRN PRN Reason: Constipation Budesonide (Pulmicort) 0.5 mg NEB Q12 [facility] Last Admin: 07/30/19 08:41 Dose: 0.5 mg Documented by: Docusate Sodium (Colace) 100 mg PO BID [facility] Last Admin: 07/30/19 08:54 Dose: 100 mg Documented by: Escitalopram Oxalate (Lexapro) 10 mg PO QDAY [facility] Last Admin: 07/30/19 08:55 Dose: 10 mg Documented by: Fexofenadine HCl (Kisha) 180 mg PO DAILYP PRN PRN Reason: Allergic Symptoms Folic Acid (Folic Acid) 1 mg PO DAILY [facility] Last Admin: 07/30/19 08:55 Dose: 1 mg Documented by: Furosemide (Lasix) 20 mg IV BIDD [facility] Last Admin: 07/30/19 08:22 Dose: 20 mg Documented by: Guaifenesin/Codeine Phosphate (Robitussin Ac) 10 ml PO Q4HP PRN PRN Reason: Cough Heparin Sodium (Porcine) (Heparin) 5,000 unit SQ Q12 [facility] Last Admin: 07/30/19 08:54 Dose: 5,000 unit Documented by: Hydralazine HCl (Apresoline) 10 mg IV Q4-6HP PRN PRN Reason: Hypertension Acetaminophen (Ofirmev) 650 mg in 65 mls @ 130 mls/hr IV Q6HP PRN; Protocol PRN Reason: Per Pain Protocol/Fever > 101 Magnesium Sulfate (Magnesium Sulfate) 2 gm in 50 mls @ 50 mls/hr IV UD PRN PRN Reason: MG = or < 1.7 Levofloxacin (Levaquin) 750 mg in 150 mls @ 100 mls/hr IV Q48H [facility]; Protocol Last Infusion: 07/29/19 23:55 Dose: Infused Documented by: Sodium Chloride (Sodium Chloride 0.9%) 500 mls @ 20 mls/hr IV .Q24H [facility] Last Admin: 07/29/19 21:51 Dose: 20 mls/hr Documented by: Iron Carb/Multivit/[place]/Folic Acid (Multivitamin W/Minerals) 1 tab PO DAILY [facility] Last Admin: 07/30/19 08:55 Dose: 1 tab Documented by: Melatonin (Melatonin 3mg Tablet) 3 mg PO HSP PRN PRN Reason: Insomnia Methylprednisolone Sodium Succinate (Solu-Medrol) 60 mg IV Q12 [facility] Last Admin: 07/30/19 08:53 Dose: 60 mg Documented by: Metoprolol Succinate (Toprol Xl) 25 mg PO QHS [facility] Last Admin: 07/29/19 22:05 Dose: 25 mg Documented by: Metoprolol Tartrate (Lopressor) 5 mg IV Q5M PRN PRN Reason: Heart Rate > 140 bpm Nitroglycerin (Nitrostat) 0.4 mg SL Q5M PRN PRN Reason: Chest Pain Omeprazole (Prilosec) 20 mg PO QAMAC [facility] Last Admin: 07/30/19 07:33 Dose: 20 mg Documented by: Ondansetron HCl (Zofran Odt) 4 mg SL Q4-6HP PRN; Protocol PRN Reason: Nausea And Vomiting Ondansetron HCl (Zofran) 4 mg IV Q4-6HP PRN; Protocol PRN Reason: Nausea And Vomiting Polyethylene Glycol (Miralax) 17 gm PO DAILYP PRN PRN Reason: Constipation Potassium Chloride (Klor-Con) 40 meq PO DAILYP PRN PRN Reason: K+ < 3.5 Senna/Docusate Sodium (Senna Plus Tablet) 1 tab PO HS [facility] Last Admin: 07/29/19 22:05 Dose: 1 tab Documented by: Sodium Chloride (Saline Flush) 10 ml IV Q8 [facility] Last Admin: 07/30/19 06:03 Dose: Not Given Documented by: Thiamine HCl (Vitamin B1) 100 mg PO DAILY [facility] Last Admin: 07/30/19 08:55 Dose: 100 mg Documented by: Tramadol HCl (Ultram) 50 mg PO Q8HP PRN PRN Reason: Pain Medical - PN: A/P - Time Spent With Patient Total time spent is greater than 50% in coordination of care (as documented) at patient's floor/unit and/or counseling patient: 25 - 35 minutes (1) COPD exacerbation Status: Acute Assessment and plan: * Acute exacerbation of COPD-hypercapnia on blood gas. Baseline PCO2 around 55 based on . Continue bronchodilators/steroids/pulmonary toilet. De- escalate to oral steroids in 24 hours. * Acute decompensated heart failure-(history of underlying NYHA class III heart failure )await echocardiogram from cardiology Dr. Diaz office. Responding well to diuretics. Repeat chest imaging. Per recent notes from oncology EF stable without evidence of amyloid cardiomyopathy. Continue beta-alfredo/diuretics/aspirin and statin * History of adrenal insufficiency on hydrocortisone at home. Currently on IV steroids * History of chronic anemia follows up with Dr. Caba oncology. Hemoglobin 9.3 * Chronic kidney disease stage III managed by Dr. Barber as outpatient. * GERD on PPI * DNR * Prophylaxis heparin Plan * Continue diuretics * Transition to oral steroids in 24 hours * Continue bronchodilators/antibiotic coverage * Pre-existing medical condition management home medications * PT OT nutrition support * Discharge planning per case management Current Visit: Yes
--- NOTE | 2019-07-30 13:06 | Internal Med Progress Note ---
Medical - PN: Subj Patient information: Note initiated : 07/30/19 at 12:59 pm Service Date, if different from initiated Date: [] Patient: Glenis Rosario a 89 y/o F admitted on 07/29/19 for shortness of breath. Chief Complaint: [] Interval history: Ms. Rosario is a 89 year old F with a history of chronic kidney disease/iron deficiency anemia/adrenal insufficiency who presents to the ER directly from cardiology office visit today after she was found increasingly short of breath weak fatigued. Patient lives at assisted living at [place] and frequently eats will stop by her daughter Soumya who lives in [facility]. Patient's daughter noticed a steady decline in functionality over the last 4 days to the point she could barely function or get out of bed, patient also has associated cough along with shortness of breath and yellow productive sputum. However there is no associated fever chills or rashes. Initial work-up in the ER was consistent with hypoxic hypercapnic respiratory failure consistent with COPD exacerbation and chest imaging suggestive of fluid overload with CHF. White count 12.1 with ABG 7.49/45/77 on 2 L oxygen. Patient received a dose of Lasix along with bronchodilators with slight improvement. Subsequently hospitalist service was consulted At time evaluation patient is accompanied with her daughter Soumya. Patient is extremely fatigued lethargic unable to provide any history but was able to participate in review of systems. She denies sick contacts. She denies flulike symptoms. She endorses to cough but denies shaking chills, diarrhea, bloody stool, dysuria or abdominal pain. She further denies chest pain headache photophobia. 07/30-patient doing a lot better. More awake alert. Improved shortness of breath. Able to talk in full sentences. White count 12.9. Diuresed over 14,000 cc net negative fluid balance. Continuing steroids/antibiotics. Hemodynamic stable currently on 2 L oxygen. Potassium improved to 3.6. Creatinine 1.2. Continues PT OT/nutrition support - Constitutional Vitals: Vital Signs Temp Pulse Resp BP Pulse Ox 97.1 F 78 15 103/65 94 07/30/19 08:00 07/30/19 08:57 07/30/19 08:57 07/30/19 03:58 07/30/19 08:57 Period Temp Pulse Resp BP Sys/Pichardo Pulse Ox Last 24 Hr 97.1 F-98.3 F 53-89 15-39 103-149/65-119 88-100 Intake and Output 07/29/19 07/30/19 07/30/19 21:59 05:59 13:59 Intake Total 150 600 Output Total 1125 425 Balance -1125 -275 600 Weight 78.97 kg 78.97 kg Patient Weight 07/31/19 05:59 Weight 78.97 kg Intake & Output: Intake & Output 07/29/19 07/30/19 07/30/19 21:59 05:59 13:59 Intake Total 150 600 Output Total 1125 425 Balance -1125 -867 600 Weight 78.97 kg 78.97 kg Intake: IV 150 Oral 600 Output: Void Amount 1125 425 Other: Meal Breakfast Percent of Meal Consumed 50% Feeding Ability Assist with Tray Set Up Urine Appearance Clear Clear Urine Color Bright Yellow Bright Yellow Exam: General: Alert, Awake, No acute Distress Eyes/N/T: EOMI, Head/Neck: neck supple, normocephalic atraumatic CV: RRR, No murmurs, normal s1/s2 Pulm: no wheezing Abd: soft, nontender, +BS x4 Ext: no clubbing/cyanosis, + b/l LE edema Neuro: Alert, no focal deficits, moves all extremities, Skin: warm/dry Medical - PN: Obj Da - Labs CBC & Chem 7: 07/30/19 05:25 07/30/19 05:25 Labs: Abnormal Lab Results 07/30/19 07/30/19 07/29/19 05:25 05:25 17:06 WBC 12.9 H RBC 3.42 L Hgb 9.3 L Hct 32.5 L MCHC 28.6 L RDW 22.6 H MPV 10.7 H Lymph % (Auto) Gran # Lymph # (Auto) [place] # (Auto) Seg Neutrophils % 90 H Lymphocytes % 7 L Nucleated RBCs 1 H RBC Morphology Abnorm A Polychromasia 1+ A Anisocytosis 3+ A ESR Potassium Creatinine 1.2 H Glucose 165 H Uric Acid 9.5 H Total Bilirubin 1.3 H Direct Bilirubin 0.4 H GGT 92 H Alkaline Phosphatase 172 H Lactate Dehydrogenase 355 H C-Reactive Protein NT-Pro-B Natriuret Pep Globulin Urine Protein 100 A Urine Occult Blood 0.03 A Urine Urobilinogen 2.0 A Ur Leukocyte Esterase 250 A Urine WBC 128 H Hyaline Casts 21 H 07/29/19 07/29/19 07/29/19 14:48 14:48 14:48 WBC RBC Hgb Hct MCHC RDW MPV Lymph % (Auto) Gran # Lymph # (Auto) [place] # (Auto) Seg Neutrophils % Lymphocytes % Nucleated RBCs RBC Morphology Polychromasia Anisocytosis ESR 67 H Potassium Creatinine Glucose Uric Acid Total Bilirubin Direct Bilirubin GGT Alkaline Phosphatase Lactate Dehydrogenase C-Reactive Protein 2.7 H NT-Pro-B Natriuret Pep 48450.0 H Globulin Urine Protein Urine Occult Blood Urine Urobilinogen Ur Leukocyte Esterase Urine WBC Hyaline Casts 07/29/19 07/29/19 14:48 14:48 WBC 12.1 H RBC Hgb Hct MCHC 28.5 L RDW 22.9 H MPV 10.9 H Lymph % (Auto) 11.7 L Gran # 9.38 H Lymph # (Auto) 1.41 L [place] # (Auto) 1.17 H Seg Neutrophils % Lymphocytes % Nucleated RBCs RBC Morphology Polychromasia Anisocytosis ESR Potassium 3.1 L Creatinine 1.3 H Glucose 149 H Uric Acid Total Bilirubin 1.4 H Direct Bilirubin GGT Alkaline Phosphatase 225 H Lactate Dehydrogenase C-Reactive Protein NT-Pro-B Natriuret Pep Globulin 4.0 H Urine Protein Urine Occult Blood Urine Urobilinogen Ur Leukocyte Esterase Urine WBC Hyaline Casts Meds: Medications Acetaminophen (Tylenol) 650 mg PO Q4-6HP PRN; Protocol PRN Reason: Per Pain Protocol/Fever > 101 Albuterol/Ipratropium (Duoneb) 3 ml NEB Q4HRT [facility] Last Admin: 07/30/19 12:57 Dose: Not Given Documented by: Aspirin (Aspirin) 162 mg PO QDAY [facility] Last Admin: 07/30/19 08:55 Dose: 162 mg Documented by: Atorvastatin Calcium (Lipitor) 40 mg PO HS [facility] Last Admin: 07/29/19 22:05 Dose: 40 mg Documented by: Baclofen (Lioresal) 10 mg PO BID [facility] Last Admin: 07/30/19 08:55 Dose: 10 mg Documented by: Bisacodyl (Dulcolax) 10 mg [place] Q2-3DAYS PRN PRN Reason: Constipation Budesonide (Pulmicort) 0.5 mg NEB Q12 [facility] Last Admin: 07/30/19 08:41 Dose: 0.5 mg Documented by: Docusate Sodium (Colace) 100 mg PO BID [facility] Last Admin: 07/30/19 08:54 Dose: 100 mg Documented by: Escitalopram Oxalate (Lexapro) 10 mg PO QDAY [facility] Last Admin: 07/30/19 08:55 Dose: 10 mg Documented by: Fexofenadine HCl (Kisha) 180 mg PO DAILYP PRN PRN Reason: Allergic Symptoms Folic Acid (Folic Acid) 1 mg PO DAILY [facility] Last Admin: 07/30/19 08:55 Dose: 1 mg Documented by: Furosemide (Lasix) 20 mg IV BIDD [facility] Last Admin: 07/30/19 08:22 Dose: 20 mg Documented by: Guaifenesin/Codeine Phosphate (Robitussin Ac) 10 ml PO Q4HP PRN PRN Reason: Cough Heparin Sodium (Porcine) (Heparin) 5,000 unit SQ Q12 [facility] Last Admin: 07/30/19 08:54 Dose: 5,000 unit Documented by: Hydralazine HCl (Apresoline) 10 mg IV Q4-6HP PRN PRN Reason: Hypertension Acetaminophen (Ofirmev) 650 mg in 65 mls @ 130 mls/hr IV Q6HP PRN; Protocol PRN Reason: Per Pain Protocol/Fever > 101 Magnesium Sulfate (Magnesium Sulfate) 2 gm in 50 mls @ 50 mls/hr IV UD PRN PRN Reason: MG = or < 1.7 Levofloxacin (Levaquin) 750 mg in 150 mls @ 100 mls/hr IV Q48H [facility]; Protocol Last Infusion: 07/29/19 23:55 Dose: Infused Documented by: Sodium Chloride (Sodium Chloride 0.9%) 500 mls @ 20 mls/hr IV .Q24H [facility] Last Admin: 07/29/19 21:51 Dose: 20 mls/hr Documented by: Iron Carb/Multivit/[place]/Folic Acid (Multivitamin W/Minerals) 1 tab PO DAILY [facility] Last Admin: 07/30/19 08:55 Dose: 1 tab Documented by: Melatonin (Melatonin 3mg Tablet) 3 mg PO HSP PRN PRN Reason: Insomnia Methylprednisolone Sodium Succinate (Solu-Medrol) 60 mg IV Q12 [facility] Last Admin: 07/30/19 08:53 Dose: 60 mg Documented by: Metoprolol Succinate (Toprol Xl) 25 mg PO QHS [facility] Last Admin: 07/29/19 22:05 Dose: 25 mg Documented by: Metoprolol Tartrate (Lopressor) 5 mg IV Q5M PRN PRN Reason: Heart Rate > 140 bpm Nitroglycerin (Nitrostat) 0.4 mg SL Q5M PRN PRN Reason: Chest Pain Omeprazole (Prilosec) 20 mg PO QAMAC [facility] Last Admin: 07/30/19 07:33 Dose: 20 mg Documented by: Ondansetron HCl (Zofran Odt) 4 mg SL Q4-6HP PRN; Protocol PRN Reason: Nausea And Vomiting Ondansetron HCl (Zofran) 4 mg IV Q4-6HP PRN; Protocol PRN Reason: Nausea And Vomiting Polyethylene Glycol (Miralax) 17 gm PO DAILYP PRN PRN Reason: Constipation Potassium Chloride (Klor-Con) 40 meq PO DAILYP PRN PRN Reason: K+ < 3.5 Senna/Docusate Sodium (Senna Plus Tablet) 1 tab PO [facility] Last Admin: 07/29/19 22:05 Dose: 1 tab Documented by: Sodium Chloride (Saline Flush) 10 ml IV Q8 [facility] Last Admin: 07/30/19 06:03 Dose: Not Given Documented by: Thiamine HCl (Vitamin B1) 100 mg PO DAILY [facility] Last Admin: 07/30/19 08:55 Dose: 100 mg Documented by: Tramadol HCl (Ultram) 50 mg PO Q8HP PRN PRN Reason: Pain Medical - PN: A/P - Time Spent With Patient Total time spent is greater than 50% in coordination of care (as documented) at patient's floor/unit and/or counseling patient: - Narrative A/P Narrative: A: *AECOPD ( ) w/hypercapnia: Baseline PCO2 around 55 based on . *acute on hypoxic/hypercapnic respiratory failure: *Acute on chronic systolic CHF (history of underlying NYHA class III heart failure ): follow with Dr. Diaz - Responding well to diuretics. -echo (01/2019) EF 40-45%Per recent notes from oncology EF stable without evidence of amyloid cardiomyopathy. *h/o Adrenal insufficiency: on hydrocortisone at home. *anemia, chronic: follows up with Dr. Caba oncology *CKD III: follows with Dr. Singer *GERD on PPI *Depression/Anxiety: Plan -Continue bronchodilators/steroids/pulmonary toilet/nebs -IV steroids, De-escalate to oral steroids in 24 hours and eventually to home regimen -empiric antibiotic coverage -IV diuretics, f/u CXR -Continue beta-alfredo/ASA/statin -Pre-existing medical condition management home medications -PT OT nutrition support -Discharge planning per case management -ppx: Heparin DNR
[2019-07-30] MEDS: ATORVASTATIN 40 MG TABLET PO SCH (21:30)
[2019-07-30] MEDS: SENNOSIDES/DOCUSATE SODIUM 1 TAB TABLET PO SCH (21:30)
[2019-07-30] MEDS: METOPROLOL SUCCINATE 25 MG TAB.XL.24H PO SCH (21:30)
[2019-07-31] MEDS: 0.9 % SODIUM CHLORIDE 500 ML IV SCH ×3 (02:19→22:54)
[2019-07-31] MEDS: 0.9 % SODIUM CHLORIDE 10 ML SYRINGE IV SCH ×3 (05:05→21:41)
[2019-07-31 07:26] LABS: Chloride 97 mmol/L (96-108)
[2019-07-31 07:35] LABS: ALT/SGPT 14 U/l (0-40); AST/SGOT 34 U/l (0-37); Albumin 3.4 gm/dL (3.2-5.2); Alkaline Phosphatase 155 U/L (39-117); Bilirubin,Direct 0.3 mg/dL (0.0-0.3); Blood Urea Nitrogen 19 mg/dl (8-23); Carbon Dioxide 27 mmol/L (22-30); Globulin 3.5 gm/dL (2.2-3.7); Glomerular Filtration Rate 41; Glucose 134 mg/dL (70-105); Lactate Dehydrogenase 475 U/L (94-250); Phosphorous 2.9 mg/dL (2.7-4.5); Triglycerides 113 mg/dl (<150); Uric Acid 8.5 mg/dL (2.5-8.0)
[2019-07-31 07:40] LABS: Anisocytosis 3+ (NONE SEEN); Band Neutrophils % 1 % (0-10); Lymphocytes % 4 % (15-49); Monocytes % (Manual) 1 % (1-12); Platelet Estimate NORMAL (NORMAL); Polychromasia 1+ (NONE SEEN); RBC Morphology ABNORM (NORMAL); Segmented Neutrophils % 94 % (38-78)
[2019-07-31 08:10] LABS: Hematocrit 34.3 % (34.1-44.9); Hemoglobin 9.9 g/dL (11.2-15.7); Mean Cell Volume 96.1 fL (80.0-100.0); Mean Corpuscular HGB Conc 28.9 g/dL (31.0-36.0); Mean Platelet Volume 10.7 fL (7.4-10.4); Platelet Count 142 K/mcL (140-440); RBC 3.57 M/mcL (3.59-5.38); Red Cell Distribution Width 23.1 % (11.5-14.5); WBC 15.2 K/mcL (4.50-11.00)
--- NOTE | 2019-07-31 08:18 | Internal Med Progress Note ---
Medical - PN: Subj Patient information: Note initiated : 07/31/19 at 8:09 am Service Date, if different from initiated Date: [] Patient: Glenis Rosario a 89 y/o F admitted on 07/29/19 for shortness of breath. Chief Complaint: [] Interval history: Ms. Rosario is a 89 year old F with a history of chronic kidney disease/iron deficiency anemia/adrenal insufficiency who presents to the ER directly from cardiology office visit today after she was found increasingly short of breath weak fatigued. Patient lives at assisted living at [place] and frequently eats will stop by her daughter Soumya who lives in [facility]. Patient's daughter noticed a steady decline in functionality over the last 4 days to the point she could barely function or get out of bed, patient also has associated cough along with shortness of breath and yellow productive sputum. However there is no associated fever chills or rashes. Initial work-up in the ER was consistent with hypoxic hypercapnic respiratory failure consistent with COPD exacerbation and chest imaging suggestive of fluid overload with CHF. White count 12.1 with ABG 7.49/45/77 on 2 L oxygen. Patient received a dose of Lasix along with bronchodilators with slight improvement. Subsequently hospitalist service was consulted At time evaluation patient is accompanied with her daughter Soumya. Patient is extremely fatigued lethargic unable to provide any history but was able to participate in review of systems. She denies sick contacts. She denies flulike symptoms. She endorses to cough but denies shaking chills, diarrhea, bloody stool, dysuria or abdominal pain. She further denies chest pain headache photophobia. 07/30-patient doing a lot better. More awake alert. Improved shortness of breath. Able to talk in full sentences. White count 12.9. Diuresed over 14,000 cc net negative fluid balance. Continuing steroids/antibiotics. Hemodynamic stable currently on 2 L oxygen. Potassium improved to 3.6. Creatinine 1.2. Continues PT OT/nutrition support 07/31 No new complaints overnight events. Shortness of breath improving. Good diuresis. Occasional cough. Review of Systems: denies headache/fever/chills/nausea/vomiting/chest or abdominal pain/diarrhea. Otherwise see above. - Constitutional Vitals: Vital Signs Temp Pulse Resp BP Pulse Ox 98.6 F 74 20 119/79 96 07/31/19 07:15 07/31/19 03:04 07/31/19 07:15 07/31/19 07:15 07/31/19 07:15 Period Temp Pulse Resp BP Sys/Pichardo Pulse Ox Last 24 Hr 97.0 F-98.6 F 72-78 15- 110-136/66-79 94-96 Intake and Output 07/30/19 07/31/19 07/31/19 21:59 05:59 13:59 Intake Total 500 860 Output Total 100 450 0 Balance 400 410 0 Weight 79.832 kg Intake & Output: Intake & Output 07/30/19 07/31/19 07/31/19 21:59 05:59 13:59 Intake Total 500 860 Output Total 100 450 0 Balance 400 410 0 Weight 79.832 kg Intake: IV 500 Sodium Chloride 0.9% 500 ml @ 500 20 mls/hr IV .Q24H [facility] Rx#: [id number] Oral 500 360 Output: Void Amount 100 450 0 Other: Urine Appearance Clear Urine Color Bright Yellow Dark Yellow Urine Odor Normal Exam: General: Alert, Awake, No acute Distress Eyes/N/T: EOMI, Head/Neck: neck supple, normocephalic atraumatic CV: RRR, No murmurs, normal s1/s2 Pulm: mild diminished, mild rhonchi b/l,no wheezing Abd: soft, nontender, +BS x4 Ext: no clubbing/cyanosis, 2+ b/l LE edema Neuro: Alert, no focal deficits, moves all extremities, Skin: warm/dry Medical - PN: Obj Da - Labs CBC & Chem 7: 07/31/19 05:25 07/31/19 05:25 Labs: Abnormal Lab Results 07/31/19 07/31/19 07/30/19 05:25 05:25 05:25 WBC RBC Hgb Hct MCHC RDW MPV Lymph % (Auto) Gran # Lymph # (Auto) Louisa # (Auto) Seg Neutrophils % 94 H Lymphocytes % 4 L Nucleated RBCs RBC Morphology Abnorm A Polychromasia 1+ A Anisocytosis 3+ A ESR Potassium Creatinine 1.2 H 1.2 H Glucose 134 H 165 H Uric Acid 8.5 H 9.5 H Total Bilirubin 1.3 H Direct Bilirubin 0.4 H GGT 86 H 92 H Alkaline Phosphatase 155 H 172 H Lactate Dehydrogenase 475 H 355 H C-Reactive Protein NT-Pro-B Natriuret Pep Globulin Urine Protein Urine Occult Blood Urine Urobilinogen Ur Leukocyte Esterase Urine WBC Hyaline Casts 07/30/19 07/29/19 07/29/19 05:25 17:06 14:48 WBC 12.9 H RBC 3.42 L Hgb 9.3 L Hct 32.5 L MCHC 28.6 L RDW 22.6 H MPV 10.7 H Lymph % (Auto) Gran # Lymph # (Auto) Louisa # (Auto) Seg Neutrophils % 90 H Lymphocytes % 7 L Nucleated RBCs 1 H RBC Morphology Abnorm A Polychromasia 1+ A Anisocytosis 3+ A ESR Potassium Creatinine Glucose Uric Acid Total Bilirubin Direct Bilirubin GGT Alkaline Phosphatase Lactate Dehydrogenase C-Reactive Protein 2.7 H NT-Pro-B Natriuret Pep Globulin Urine Protein 100 A Urine Occult Blood 0.03 A Urine Urobilinogen 2.0 A Ur Leukocyte Esterase 250 A Urine WBC 128 H Hyaline Casts 21 H 07/29/19 07/29/19 07/29/19 14:48 14:48 14:48 WBC RBC Hgb Hct MCHC RDW MPV Lymph % (Auto) Gran # Lymph # (Auto) Louisa # (Auto) Seg Neutrophils % Lymphocytes % Nucleated RBCs RBC Morphology Polychromasia Anisocytosis ESR 67 H Potassium 3.1 L Creatinine 1.3 H Glucose 149 H Uric Acid Total Bilirubin 1.4 H Direct Bilirubin GGT Alkaline Phosphatase 225 H Lactate Dehydrogenase C-Reactive Protein NT-Pro-B Natriuret Pep 88029.0 H Globulin 4.0 H Urine Protein Urine Occult Blood Urine Urobilinogen Ur Leukocyte Esterase Urine WBC Hyaline Casts 07/29/19 14:48 WBC 12.1 H RBC Hgb Hct MCHC 28.5 L RDW 22.9 H MPV 10.9 H Lymph % (Auto) 11.7 L Gran # 9.38 H Lymph # (Auto) 1.41 L Louisa # (Auto) 1.17 H Seg Neutrophils % Lymphocytes % Nucleated RBCs RBC Morphology Polychromasia Anisocytosis ESR Potassium Creatinine Glucose Uric Acid Total Bilirubin Direct Bilirubin GGT Alkaline Phosphatase Lactate Dehydrogenase C-Reactive Protein NT-Pro-B Natriuret Pep Globulin Urine Protein Urine Occult Blood Urine Urobilinogen Ur Leukocyte Esterase Urine WBC Hyaline Casts Meds: Medications Acetaminophen (Tylenol) 650 mg PO Q4-6HP PRN; Protocol PRN Reason: Per Pain Protocol/Fever > 101 Albuterol/Ipratropium (Duoneb) 3 ml NEB Q4HP PRN PRN Reason: Shortness Of Breath Or Wheezing Aspirin (Aspirin) 162 mg PO QDAY [facility] Last Admin: 07/30/19 08:55 Dose: 162 mg Documented by: Atorvastatin Calcium (Lipitor) 40 mg PO HS [facility] Last Admin: 07/30/19 21:30 Dose: 40 mg Documented by: Baclofen (Lioresal) 10 mg PO BID [facility] Last Admin: 07/30/19 21:30 Dose: 10 mg Documented by: Bisacodyl (Dulcolax) 10 mg [place] Q2-3DAYS PRN PRN Reason: Constipation Docusate Sodium (Colace) 100 mg PO BID [facility] Last Admin: 07/30/19 21:30 Dose: 100 mg Documented by: Escitalopram Oxalate (Lexapro) 10 mg PO QDAY [facility] Last Admin: 07/30/19 08:55 Dose: 10 mg Documented by: Fexofenadine HCl (Kisha) 180 mg PO DAILYP PRN PRN Reason: Allergic Symptoms Folic Acid (Folic Acid) 1 mg PO DAILY [facility] Last Admin: 07/30/19 08:55 Dose: 1 mg Documented by: Furosemide (Lasix) 20 mg IV BIDD [facility] Last Admin: 07/30/19 16:33 Dose: 20 mg Documented by: Guaifenesin/Codeine Phosphate (Robitussin Ac) 10 ml PO Q4HP PRN PRN Reason: Cough Heparin Sodium (Porcine) (Heparin) 5,000 unit SQ Q12 [facility] Last Admin: 07/30/19 21:30 Dose: 5,000 unit Documented by: Hydralazine HCl (Apresoline) 10 mg IV Q4-6HP PRN PRN Reason: Hypertension Acetaminophen (Ofirmev) 650 mg in 65 mls @ 130 mls/hr IV Q6HP PRN; Protocol PRN Reason: Per Pain Protocol/Fever > 101 Magnesium Sulfate (Magnesium Sulfate) 2 gm in 50 mls @ 50 mls/hr IV UD PRN PRN Reason: MG = or < 1.7 Levofloxacin (Levaquin) 750 mg in 150 mls @ 100 mls/hr IV Q48H [facility]; Protocol Last Infusion: 01/23/20 23:55 Dose: Infused Documented by: Sodium Chloride (Sodium Chloride 0.9%) 500 mls @ 20 mls/hr IV .Q24H [facility] Last Admin: 07/31/19 04:18 Dose: 20 mls/hr Documented by: Iron Carb/Multivit/Cook/Folic Acid (Multivitamin W/Minerals) 1 tab PO DAILY [facility] Last Admin: 07/30/19 08:55 Dose: 1 tab Documented by: Melatonin (Melatonin 3mg Tablet) 3 mg PO HSP PRN PRN Reason: Insomnia Methylprednisolone Sodium Succinate (Solu-Medrol) 60 mg IV Q12 [facility] Last Admin: 07/30/19 21:30 Dose: 60 mg Documented by: Metoprolol Succinate (Toprol Xl) 25 mg PO QHS [facility] Last Admin: 07/30/19 21:30 Dose: 25 mg Documented by: Metoprolol Tartrate (Lopressor) 5 mg IV Q5M PRN PRN Reason: Heart Rate > 140 bpm Nitroglycerin (Nitrostat) 0.4 mg SL Q5M PRN PRN Reason: Chest Pain Omeprazole (Prilosec) 20 mg PO QAMAC [facility] Last Admin: 07/30/19 07:33 Dose: 20 mg Documented by: Ondansetron HCl (Zofran Odt) 4 mg SL Q4-6HP PRN; Protocol PRN Reason: Nausea And Vomiting Ondansetron HCl (Zofran) 4 mg IV Q4-6HP PRN; Protocol PRN Reason: Nausea And Vomiting Polyethylene Glycol (Miralax) 17 gm PO DAILYP PRN PRN Reason: Constipation Potassium Chloride (Klor-Con) 40 meq PO DAILYP PRN PRN Reason: K+ < 3.5 Senna/Docusate Sodium (Senna Plus Tablet) 1 tab PO HS [facility] Last Admin: 07/30/19 21:30 Dose: 1 tab Documented by: Sodium Chloride (Saline Flush) 10 ml IV Q8 [facility] Last Admin: 07/31/19 05:05 Dose: Not Given Documented by: Thiamine HCl (Vitamin B1) 100 mg PO DAILY [facility] Last Admin: 07/30/19 08:55 Dose: 100 mg Documented by: Tramadol HCl (Ultram) 50 mg PO Q8HP PRN PRN Reason: Pain Medical - PN: A/P - Time Spent With Patient Total time spent is greater than 50% in coordination of care (as documented) at patient's floor/unit and/or counseling patient: - Narrative A/P Narrative: A: *AECOPD (no home O2) w/hypercapnia w/(+)RSV: Baseline PCO2 around 55 based on . *acute on hypoxic/hypercapnic respiratory failure: *Acute on chronic systolic CHF (history of underlying NYHA class III heart failure ): follow with Dr. Diaz -echo (01/2019) EF 40-45%, *UTI (e. coli) on admit: *h/o Adrenal insufficiency: on hydrocortisone at home. *anemia, chronic: follows up with Dr. Caba oncology *CKD III: follows with Dr. Singer *GERD on PPI *Depression/Anxiety: *Dementia: Plan -Continue bronchodilators/steroids/pulmonary toilet/nebs -IV steroids (wean), and eventually to home regimen -empiric antibiotic coverage -IV diuretics, f/u CXR -Continue beta-alfredo/ASA/statin -Pre-existing medical condition management home medications -PT OT nutrition support -Discharge planning per case management -ppx: Heparin DNR
[2019-07-31] MEDS: LEVOFLOXACIN 750 MG/150 ML BAG IV SCH (08:56)
[2019-07-31] MEDS: FUROSEMIDE 40 MG/4 ML VIAL IV SCH (08:56)
[2019-07-31] MEDS: OMEPRAZOLE 20 MG CAPSULE PO SCH (08:56)
[2019-07-31] MEDS ORDERED: predniSONE 20 MG TABLET PO SCH (09:00)
[2019-07-31] MEDS: THIAMINE 100 MG TABLET PO SCH (10:35)
[2019-07-31] MEDS: ESCITALOPRAM 10 MG TABLET PO SCH (10:35)
[2019-07-31] MEDS: FOLIC ACID 1 MG TABLET PO SCH (10:35)
[2019-07-31] MEDS: BACLOFEN 10 MG TABLET PO SCH ×2 (10:35→21:37)
[2019-07-31] MEDS: DOCUSATE SODIUM 100 MG CAPSULE PO SCH ×2 (10:35→21:36)
[2019-07-31] MEDS: MULTIVIT,THER IRON,CA,FA & MIN 1 TABLET PO SCH (10:35)
[2019-07-31] MEDS: HEPARIN 5,000 UNIT/ML VIAL SQ SCH ×2 (10:36→21:36)
[2019-07-31] MEDS: ASPIRIN 81 MG TAB.CHEW PO SCH (10:36)
[2019-07-31] MEDS: FUROSEMIDE 20 MG/2 ML VIAL IV ONE ×2 (10:37→12:14)
--- NOTE | 2019-07-31 11:41 | XRay Report ---
CLINICAL INFORMATION: Follow-up CHF COMPARISON: 07/29/2019 FINDINGS: Heart has decreased is now only mildly enlarged. Pacemaker and leads in stable satisfactory position. Sternotomy again noted. Mediastinum is normal. Pulmonary vessels have returned to normal in caliber. Lungs are clear. No effusions IMPRESSION: Interval resolution CHF. No acute disease Interpreted and Authenticated by: Sathya Raza 07/31/19
--- NOTE | 2019-07-31 11:46 | Discharge Summary ---
Medical - DS: Prov Patient information: Note initiated : 07/31/19 at 11:40 am Service Date, if different from initiated Date: [] Patient: Glenis Rosario 89 y/o F admitted on 07/29/19 for shortness of breath. Chief Complaint: [] Date of admission: 07/29/19 20:10 Discharge date: 08/02/19 Primary care physician: Beverley Hyde Consults: 07/29/19 Consult to Physician [CONS] Stat Comment: Consulting Provider: Alok Adhikari Reason For Exam: Physician to Consult Medical - DS: Meds - Discharge Medications Prescriptions: Albuterol Sulfate [Albuterol Sulfate Hfa] 8.5 gm IH Q6HP PRN #1 hfa.[id number] PRN Reason: wheezing, shortness of breath Furosemide [Lasix] 40 mg PO QAM #30 tab Active and Home Medications: Home Medications Acetaminophen [Shake That Ache] 500 mg PO PRN PRN 03/06/16 [History Confirmed 07/30/19 Last Taken Unknown] Atorvastatin [Lipitor] 40 mg PO HS 03/06/16 [History Confirmed 07/30/19 Last Taken 07/28/19] Fexofenadine [Kisha] 180 mg PO PRN PRN 03/06/16 [History Confirmed 07/30/19 Last Taken 03/05/16] Nitroglycerin [Nitrostat] 0.4 mg SL PRN PRN 03/06/16 [History Confirmed 07/30/19 Last Taken Unknown] Omeprazole [PriLOSEC] 20 mg PO DAILY 03/06/16 [History Confirmed 07/30/19 Last Taken 07/29/19] aspirin 81 mg tablet,delayed release 162 mg PO QDAY 02/19/19 [History Confirmed 07/30/19 Last Taken 07/29/19] baclofen 10 mg tablet 10 mg PO BID 02/19/19 [History Confirmed 07/30/19 Last Taken 07/28/19] escitalopram oxalate 10 mg tablet 10 mg PO QDAY 06/23/19 [History Confirmed 07/30/19 Last Taken 07/29/19] furosemide 20 mg tablet 20 mg PO QAM 06/23/19 [History Confirmed 07/30/19 Last Taken 07/29/19] hydrocortisone 10 mg tablet 15 mg PO BID tab 06/23/19 [History Confirmed 07/30/19 Last Taken 07/29/19] metoprolol succinate 25 mg capsule sprinkle, ext. release 24 hr 25 mg PO QHS each 06/23/19 [History Confirmed 07/30/19 Last Taken 07/28/19] ondansetron HCl 4 mg tablet 4 mg PO Q8H PRN 06/23/19 [History Confirmed 07/30/19 Last Taken Unknown] polyethylene glycol 3350 17 gram/dose oral powder 17 g PO QDAY 06/23/19 [History Confirmed 07/30/19 Last Taken 07/29/19] tramadol 50 mg tablet 50 mg PO Q8H PRN tab 06/23/19 [History Confirmed 07/30/19 Last Taken Unknown] Home Medications Acetaminophen [Shake That Ache] 500 mg PO PRN PRN 03/06/16 [History Confirmed 07/30/19 Last Taken Unknown] Atorvastatin [Lipitor] 40 mg PO HS 03/06/16 [History Confirmed 07/30/19 Last Taken 07/28/19] Fexofenadine [Kisha] 180 mg PO PRN PRN 03/06/16 [History Confirmed 07/30/19 Last Taken 03/05/16] Nitroglycerin [Nitrostat] 0.4 mg SL PRN PRN 03/06/16 [History Confirmed 07/30/19 Last Taken Unknown] Omeprazole [Prilosec] 20 mg PO DAILY 03/06/16 [History Confirmed 07/30/19 Last Taken 07/29/19] aspirin 81 mg tablet,delayed release 162 mg PO QDAY 02/19/19 [History Confirmed 07/30/19 Last Taken 07/29/19] baclofen 10 mg tablet 10 mg PO BID 02/19/19 [History Confirmed 07/30/19 Last Taken 07/28/19] escitalopram oxalate 10 mg tablet 10 mg PO QDAY 06/23/19 [History Confirmed 07/30/19 Last Taken 07/29/19] hydrocortisone 10 mg tablet 15 mg PO BID tab 06/23/19 [History Confirmed 07/30/19 Last Taken 07/29/19] metoprolol succinate 25 mg capsule sprinkle, ext. release 24 hr 25 mg PO QHS each 06/23/19 [History Confirmed 07/30/19 Last Taken 07/28/19] ondansetron HCl 4 mg tablet 4 mg PO Q8H PRN 06/23/19 [History Confirmed 07/30/19 Last Taken Unknown] polyethylene glycol 3350 17 gram/dose oral powder 17 g PO QDAY 06/23/19 [History Confirmed 07/30/19 Last Taken 07/29/19] tramadol 50 mg tablet 50 mg PO Q8H PRN tab 06/23/19 [History Confirmed 07/30/19 Last Taken Unknown] Furosemide [Lasix] 40 mg PO QAM #30 tab 07/31/19 [Rx Last Taken Unknown] Albuterol Sulfate [Albuterol Sulfate Hfa] 8.5 gm IH Q6HP PRN #1 hfa.aer.ad 08/01/19 [Rx Last Taken Unknown] Medical - DS: Hosp Hospital Course: Ms. Rosario is a 89 year old F with a history of chronic kidney disease/iron deficiency anemia/adrenal insufficiency who presents to the ER directly from cardiology office visit today after she was found increasingly short of breath weak fatigued. Patient lives at [facility] [place] and frequently eats will stop by her daughter Soumya who lives in [facility]. Patient's daughter noticed a steady decline in functionality over the last 4 days to the point she could barely function or get out of bed, patient also has associated cough along with shortness of breath and yellow productive sputum. However there is no associated fever chills or rashes. Initial work-up in the ER was consistent with hypoxic hypercapnic respiratory failure consistent with COPD exacerbation and chest imaging suggestive of fluid overload with CHF. White count 12.1 with ABG 7.49/45/77 on 2 L oxygen. Patient received a dose of Lasix along with bronchodilators with slight improvement. Subsequently hospitalist service was consulted At time evaluation patient is accompanied with her daughter Soumya. Patient is extremely fatigued lethargic unable to provide any history but was able to participate in review of systems. She denies sick contacts. She denies flulike symptoms. She endorses to cough but denies shaking chills, diarrhea, bloody stool, dysuria or abdominal pain. She further denies chest pain headache photophobia. 07/30-patient doing a lot better. More awake alert. Improved shortness of breath. Able to talk in full sentences. White count 12.9. Diuresed over 14,000 cc net negative fluid balance. Continuing steroids/antibiotics. Hemodynamic stable currently on 2 L oxygen. Potassium improved to 3.6. Creatinine 1.2. Continues PT OT/nutrition support 07/31 No new complaints overnight events. Shortness of breath improving. Good diuresis. Occasional cough. 08/01 Feeling better. Slept well. Breathing much improved. On room air at this time. Has occasional cough and headache but otherwise no complaints. 08/02 Patient weak and did have controlled fall yesterday. Moving okay today but is little bit sore and stiff from the fall. Reevaluating and likely need SNF before transition back to [facility]. Discharge diagnosis: CHF COPD toxic respiratory failure UTI Secondary discharge diagnosis: Adrenal insufficiency anemia chronic kidney disease GERD depression anxiety dementia - Time Spent with Patient Total time spent providing and/or coordinating discharge services: Greater than 30 minutes Medical - DS: Exam - Constitutional Vitals: Vital Signs Temp Pulse Pulse Resp BP Pulse Ox 07/31/19 10:46 68 16 07/31/19 07:15 98.6 F 20 119/79 96 07/31/19 03:04 97.7 F 74 20 136/79 96 07/30/19 23:04 98.2 F 76 16 110/66 96 07/30/19 19:47 98.5 F 77 18 112/72 95 07/30/19 16:00 97.4 F 16 116/72 96 07/30/19 12:00 97.0 F 18 114/70 96 Intake and Output 07/30/19 07/31/19 07/31/19 21:59 05:59 13:59 Intake Total 500 860 150 Output Total 100 450 300 Balance 400 410 -150 Intake: IV 500 150 Sodium Chloride 0.9% 500 ml @ 500 20 mls/hr IV .Q24H [facility] Rx#: [id number] Oral 500 360 Output: Void Amount 100 450 300 Other: Urine Appearance Clear Clear Urine Color Bright Yellow Dark Yellow Bright Yellow Urine Odor Normal Normal Weight 79.832 kg Medical - DS: Data Labs on day of discharge: Labs from last 24 hours 07/31/19 07/31/19 05:25 05:25 WBC 15.2 H RBC 3.57 L Hgb 9.9 L Hct 34.3 MCV 96.1 MCH 27.7 MCHC 28.9 L RDW 23.1 H Plt Count 142 MPV 10.7 H Total Counted 100 Seg Neutrophils % 94 H Band Neutrophils % 1 Lymphocytes % 4 L Monocytes % (Manual) 1 Platelet Estimate Normal RBC Morphology Abnorm A Polychromasia 1+ A Anisocytosis 3+ A Sodium 140 Potassium 4.0 Chloride 97 Carbon Dioxide 27 Anion Gap 16.0 BUN 19 Creatinine 1.2 H GFR Calculation 41 Glucose 134 H Uric Acid 8.5 H Calcium 9.0 Phosphorus 2.9 Magnesium 2.0 Total Bilirubin 1.0 Direct Bilirubin 0.3 GGT 86 H AST 34 ALT 14 Alkaline Phosphatase 155 H Lactate Dehydrogenase 475 H Total Protein 6.9 Albumin 3.4 Globulin 3.5 Albumin/Globulin Ratio 1.0 Triglycerides 113 Preliminary micro results at discharge 07/29/19 17:00 Urine Culture - Preliminary Urine - Clean Void Mid-Stream Escherichia coli Medical - DS: A/P - Patient/Caregiver Discharge Instructions Activity: as per physical therapy Diet: Low Sodium (2gm) Prescriptions: Albuterol Sulfate [Albuterol Sulfate Hfa] 8.5 gm IH Q6HP PRN #1 hfa.[email or web address] PRN Reason: wheezing, shortness of breath Furosemide [Lasix] 40 mg PO QAM #30 tab - Follow up Plan Follow up with: Beverley Hyde ARNP [Primary Care Provider] - Disposition: Xfer SNF Prognosis: Undetermined Rehab Potential: Fair I certify that the patient requires SNF services: Yes Overall status at discharge: patient is progressing back to baseline
[2019-07-31] MEDS ORDERED: BENZONATATE 100 MG CAPSULE PO PRN (17:22)
[2019-07-31] MEDS: traMADol 50 MG TABLET PO PRN (17:38)
[2019-07-31] MEDS: METOPROLOL SUCCINATE 25 MG TAB.XL.24H PO SCH (21:36)
[2019-07-31] MEDS: SENNOSIDES/DOCUSATE SODIUM 1 TAB TABLET PO SCH (21:36)
[2019-07-31] MEDS: ATORVASTATIN 40 MG TABLET PO SCH (21:36)
[2019-08-01] MEDS: 0.9 % SODIUM CHLORIDE 10 ML SYRINGE IV SCH ×2 (05:52→14:10)
[2019-08-01 06:43] LABS: ALT/SGPT 13 U/l (0-40); AST/SGOT 31 U/l (0-37); Albumin 3.4 gm/dL (3.2-5.2); Albumin/Globulin Ratio 1.1 (1.0-2.3); Alkaline Phosphatase 145 U/L (39-117); Bilirubin,Direct 0.2 mg/dL (0.0-0.3); Bilirubin,Total 0.7 mg/dL (0.0-1.0); Blood Urea Nitrogen 22 mg/dl (8-23); Calcium 8.9 mg/dl (8.6-10.4); Carbon Dioxide 25 mmol/L (22-30); Chloride 93 mmol/L (96-108); Globulin 3.1 gm/dL (2.2-3.7); Glomerular Filtration Rate 45; Glucose 119 mg/dL (70-105); Lactate Dehydrogenase 466 U/L (94-250); Phosphorous 2.3 mg/dL (2.7-4.5); Triglycerides 166 mg/dl (<150); Uric Acid 7.5 mg/dL (2.5-8.0)
[2019-08-01 07:28] LABS: Anisocytosis 3+ (NONE SEEN); Lymphocytes % 11 % (15-49); Macrocytosis FEW (NONE SEEN); Monocytes % (Manual) 6 % (1-12); Ovalocytes FEW (NONE SEEN); Platelet Estimate DECREASED (NORMAL); Polychromasia FEW (NONE SEEN); RBC Fragments RARE (NONE SEEN); RBC Morphology ABNORM (NORMAL); Segmented Neutrophils % 83 % (38-78)
[2019-08-01 07:31] LABS: Hematocrit 34.9 % (34.1-44.9); Hemoglobin 9.7 g/dL (11.2-15.7); Mean Cell Volume 99.7 fL (80.0-100.0); Mean Corpuscular HGB Conc 27.8 g/dL (31.0-36.0); Mean Platelet Volume 11.7 fL (7.4-10.4); Platelet Count 108 K/mcL (140-440); Red Cell Distribution Width 23.5 % (11.5-14.5); WBC 19.3 K/mcL (4.50-11.00)
[2019-08-01] MEDS: BACLOFEN 10 MG TABLET PO SCH ×2 (08:04→20:40)
[2019-08-01] MEDS: OMEPRAZOLE 20 MG CAPSULE PO SCH (08:04)
[2019-08-01] MEDS: FOLIC ACID 1 MG TABLET PO SCH (08:04)
[2019-08-01] MEDS: MULTIVIT,THER IRON,CA,FA & MIN 1 TABLET PO SCH (08:04)
[2019-08-01] MEDS: ESCITALOPRAM 10 MG TABLET PO SCH (08:04)
[2019-08-01] MEDS: HEPARIN 5,000 UNIT/ML VIAL SQ SCH ×2 (08:04→20:42)
[2019-08-01] MEDS: ASPIRIN 81 MG TAB.CHEW PO SCH (08:04)
[2019-08-01] MEDS: THIAMINE 100 MG TABLET PO SCH (08:04)
[2019-08-01] MEDS: DOCUSATE SODIUM 100 MG CAPSULE PO SCH ×2 (08:04→20:39)
[2019-08-01] MEDS ORDERED: FUROSEMIDE 40 MG/4 ML VIAL IV ONE (08:23)
--- NOTE | 2019-08-01 08:23 | Internal Med Progress Note ---
Medical - PN: Subj Patient information: Note initiated : 08/01/19 at 8:19 am Service Date, if different from initiated Date: [] Patient: Glenis Rosario a 89 y/o F admitted on 07/29/19 for shortness of breath. Chief Complaint: [] Interval history: Ms. Rosario is a 89 year old F with a history of chronic kidney disease/iron deficiency anemia/adrenal insufficiency who presents to the ER directly from cardiology office visit today after she was found increasingly short of breath weak fatigued. Patient lives at assisted living at [place] and frequently eats will stop by her daughter Soumya who lives in [facility]. Patient's daughter noticed a steady decline in functionality over the last 4 days to the point she could barely function or get out of bed, patient also has associated cough along with shortness of breath and yellow productive sputum. However there is no associated fever chills or rashes. Initial work-up in the ER was consistent with hypoxic hypercapnic respiratory failure consistent with COPD exacerbation and chest imaging suggestive of fluid overload with CHF. White count 12.1 with ABG 7.49/45/77 on 2 L oxygen. Patient received a dose of Lasix along with bronchodilators with slight improvement. Subsequently hospitalist service was consulted At time evaluation patient is accompanied with her daughter Soumya. Patient is extremely fatigued lethargic unable to provide any history but was able to participate in review of systems. She denies sick contacts. She denies flulike symptoms. She endorses to cough but denies shaking chills, diarrhea, bloody stool, dysuria or abdominal pain. She further denies chest pain headache photophobia. 07/30-patient doing a lot better. More awake alert. Improved shortness of breath. Able to talk in full sentences. White count 12.9. Diuresed over 14,000 cc net negative fluid balance. Continuing steroids/antibiotics. Hemodynamic stable currently on 2 L oxygen. Potassium improved to 3.6. Creatinine 1.2. Continues PT OT/nutrition support 07/31 No new complaints overnight events. Shortness of breath improving. Good diuresis. Occasional cough. 08/01 Feeling better. Slept well. Breathing much improved. On room air at this time . Has occasional cough and headache but otherwise no complaints. Review of Systems: denies headache/fever/chills/nausea/vomiting/chest or abdominal pain/diarrhea. Otherwise see above. - Constitutional Vitals: Vital Signs Temp Pulse Resp BP Pulse Ox 97.6 F 88 18 125/80 93 08/01/19 08:00 08/01/19 08:00 08/01/19 08:00 08/01/19 08:00 08/01/19 08:00 Period Temp Pulse Resp BP Sys/Pichardo Pulse Ox Last 24 Hr 97.0 F-98.0 F 68-88 16-24 118-128/64-80 90-100 Intake and Output 07/31/19 08/01/19 08/01/19 21:59 05:59 13:59 Intake Total 600 Output Total 300 650 300 Balance -300 -50 -300 Weight 79.333 kg Intake & Output: Intake & Output 07/31/19 08/01/19 08/01/19 21:59 05:59 13:59 Intake Total 600 Output Total 300 650 300 Balance -300 -50 -300 Weight 79.333 kg Intake: Oral 600 Output: Void Amount 300 650 300 Other: Meal Dinner Percent of Meal Consumed 50% Urine Appearance Clear Clear Urine Color Bright Yellow Bright Yellow Urine Odor Normal # Voids 1 Exam: General: Alert, Awake, No acute Distress Eyes/N/T: EOMI, Head/Neck: neck supple, CV: RRR, No murmurs, Pulm: mild diminished, no rhonchi, no wheezing Abd: soft, nontender, +BS x4 Ext: no clubbing/cyanosis, 1-2+ b/l LE edema Neuro: Alert, no focal deficits, moves all extremities, Skin: warm/dry Medical - PN: Obj Da - Labs CBC & Chem 7: 08/01/19 05:30 08/01/19 05:30 Labs: Abnormal Lab Results 08/01/19 08/01/19 07/31/19 05:30 05:30 05:25 WBC 19.3 H RBC 3.50 L Hgb 9.7 L Hct MCHC 27.8 L RDW 23.5 H Plt Count 108 L MPV 11.7 H Lymph % (Auto) Gran # Lymph # (Auto) [place] # (Auto) Seg Neutrophils % 83 H Lymphocytes % 11 L Nucleated RBCs RBC Morphology Abnorm A Polychromasia Few A Anisocytosis 3+ A Macrocytosis Few A Ovalocytes Few A RBC Fragments Rare A ESR Potassium Chloride 93 L Creatinine 1.2 H Glucose 119 H 134 H Uric Acid 8.5 H Phosphorus 2.3 L Total Bilirubin Direct Bilirubin GGT 82 H 86 H Alkaline Phosphatase 145 H 155 H Lactate Dehydrogenase 466 H 475 H C-Reactive Protein NT-Pro-B Natriuret Pep Globulin Triglycerides 166 H Urine Protein Urine Occult Blood Urine Urobilinogen Ur Leukocyte Esterase Urine WBC Hyaline Casts 07/31/19 07/30/19 07/30/19 05:25 05:25 05:25 WBC 15.2 H 12.9 H RBC 3.57 L 3.42 L Hgb 9.9 L 9.3 L Hct 32.5 L MCHC 28.9 L 28.6 L RDW 23.1 H 22.6 H Plt Count MPV 10.7 H 10.7 H Lymph % (Auto) Gran # Lymph # (Auto) [place] # (Auto) Seg Neutrophils % 94 H 90 H Lymphocytes % 4 L 7 L Nucleated RBCs 1 H RBC Morphology Abnorm A Abnorm A Polychromasia 1+ A 1+ A Anisocytosis 3+ A 3+ A Macrocytosis Ovalocytes RBC Fragments ESR Potassium Chloride Creatinine 1.2 H Glucose 165 H Uric Acid 9.5 H Phosphorus Total Bilirubin 1.3 H Direct Bilirubin 0.4 H GGT 92 H Alkaline Phosphatase 172 H Lactate Dehydrogenase 355 H C-Reactive Protein NT-Pro-B Natriuret Pep Globulin Triglycerides Urine Protein Urine Occult Blood Urine Urobilinogen Ur Leukocyte Esterase Urine WBC Hyaline Casts 07/29/19 07/29/19 07/29/19 17:06 14:48 14:48 WBC RBC Hgb Hct MCHC RDW Plt Count MPV Lymph % (Auto) Gran # Lymph # (Auto) [place] # (Auto) Seg Neutrophils % Lymphocytes % Nucleated RBCs RBC Morphology Polychromasia Anisocytosis Macrocytosis Ovalocytes RBC Fragments ESR 67 H Potassium Chloride Creatinine Glucose Uric Acid Phosphorus Total Bilirubin Direct Bilirubin GGT Alkaline Phosphatase Lactate Dehydrogenase C-Reactive Protein 2.7 H NT-Pro-B Natriuret Pep Globulin Triglycerides Urine Protein 100 A Urine Occult Blood 0.03 A Urine Urobilinogen 2.0 A Ur Leukocyte Esterase 250 A Urine WBC 128 H Hyaline Casts 21 H 07/29/19 07/29/19 07/29/19 14:48 14:48 14:48 WBC 12.1 H RBC Hgb Hct MCHC 28.5 L RDW 22.9 H Plt Count MPV 10.9 H Lymph % (Auto) 11.7 L Gran # 9.38 H Lymph # (Auto) 1.41 L [place] # (Auto) 1.17 H Seg Neutrophils % Lymphocytes % Nucleated RBCs RBC Morphology Polychromasia Anisocytosis Macrocytosis Ovalocytes RBC Fragments ESR Potassium 3.1 L Chloride Creatinine 1.3 H Glucose 149 H Uric Acid Phosphorus Total Bilirubin 1.4 H Direct Bilirubin GGT Alkaline Phosphatase 225 H Lactate Dehydrogenase C-Reactive Protein NT-Pro-B Natriuret Pep 18052.0 H Globulin 4.0 H Triglycerides Urine Protein Urine Occult Blood Urine Urobilinogen Ur Leukocyte Esterase Urine WBC Hyaline Casts Meds: Medications Acetaminophen (Tylenol) 650 mg PO Q4-6HP PRN; Protocol PRN Reason: Per Pain Protocol/Fever > 101 Last Admin: 07/31/19 21:41 Dose: 650 mg Documented by: Albuterol/Ipratropium (Duoneb) 3 ml NEB Q4HP PRN PRN Reason: Shortness Of Breath Or Wheezing Aspirin (Aspirin) 162 mg PO QDAY [facility] Last Admin: 08/01/19 08:04 Dose: 162 mg Documented by: Atorvastatin Calcium (Lipitor) 40 mg PO HS [facility] Last Admin: 07/31/19 21:36 Dose: 40 mg Documented by: Baclofen (Lioresal) 10 mg PO BID [facility] Last Admin: 08/01/19 08:04 Dose: 10 mg Documented by: Benzonatate (Tessalon) 200 mg PO TIDP PRN PRN Reason: Cough Bisacodyl (Dulcolax) 10 mg [place] Q2-3DAYS PRN PRN Reason: Constipation Docusate Sodium (Colace) 100 mg PO BID [facility] Last Admin: 08/01/19 08:04 Dose: 100 mg Documented by: Escitalopram Oxalate (Lexapro) 10 mg PO QDAY [facility] Last Admin: 08/01/19 08:04 Dose: 10 mg Documented by: Fexofenadine HCl (Kisha) 180 mg PO DAILYP PRN PRN Reason: Allergic Symptoms Folic Acid (Folic Acid) 1 mg PO DAILY [facility] Last Admin: 08/01/19 08:04 Dose: 1 mg Documented by: Heparin Sodium (Porcine) (Heparin) 5,000 unit SQ Q12 [facility] Last Admin: 08/01/19 08:04 Dose: 5,000 unit Documented by: Hydralazine HCl (Apresoline) 10 mg IV Q4-6HP PRN PRN Reason: Hypertension Acetaminophen (Ofirmev) 650 mg in 65 mls @ 130 mls/hr IV Q6HP PRN; Protocol PRN Reason: Per Pain Protocol/Fever > 101 Magnesium Sulfate (Magnesium Sulfate) 2 gm in 50 mls @ 50 mls/hr IV UD PRN PRN Reason: MG = or < 1.7 Levofloxacin (Levaquin) 750 mg in 150 mls @ 100 mls/hr IV Q48H [facility]; Protocol Last Infusion: 07/31/19 10:26 Dose: Infused Documented by: Sodium Chloride (Sodium Chloride 0.9%) 500 mls @ 20 mls/hr IV .Q24H [facility] Last Admin: 07/31/19 22:54 Dose: Not Given Documented by: Iron Carb/Multivit/[place]/Folic Acid (Multivitamin W/Minerals) 1 tab PO DAILY [facility] Last Admin: 08/01/19 08:04 Dose: 1 tab Documented by: Melatonin (Melatonin 3mg Tablet) 3 mg PO HSP PRN PRN Reason: Insomnia Metoprolol Succinate (Toprol Xl) 25 mg PO QHS [facility] Last Admin: 07/31/19 21:36 Dose: 25 mg Documented by: Metoprolol Tartrate (Lopressor) 5 mg IV Q5M PRN PRN Reason: Heart Rate > 140 bpm Nitroglycerin (Nitrostat) 0.4 mg SL Q5M PRN PRN Reason: Chest Pain Omeprazole (Prilosec) 20 mg PO QAMAC [facility] Last Admin: 08/01/19 08:04 Dose: 20 mg Documented by: Ondansetron HCl (Zofran Odt) 4 mg SL Q4-6HP PRN; Protocol PRN Reason: Nausea And Vomiting Ondansetron HCl (Zofran) 4 mg IV Q4-6HP PRN; Protocol PRN Reason: Nausea And Vomiting Polyethylene Glycol (Miralax) 17 gm PO DAILYP PRN PRN Reason: Constipation Potassium Chloride (Klor-Con) 40 meq PO DAILYP PRN PRN Reason: K+ < 3.5 Prednisone (Prednisone) 40 mg PO DAILY [facility] Last Admin: 08/01/19 08:03 Dose: 40 mg Documented by: Senna/Docusate Sodium (Senna Plus Tablet) 1 tab PO HS [facility] Last Admin: 07/31/19 21:36 Dose: 1 tab Documented by: Sodium Chloride (Saline Flush) 10 ml IV Q8 [facility] Last Admin: 08/01/19 05:52 Dose: Not Given Documented by: Thiamine HCl (Vitamin B1) 100 mg PO DAILY [facility] Last Admin: 08/01/19 08:04 Dose: 100 mg Documented by: Tramadol HCl (Ultram) 50 mg PO Q8HP PRN PRN Reason: Pain Last Admin: 07/31/19 17:38 Dose: 50 mg Documented by: Medical - PN: A/P - Time Spent With Patient Total time spent is greater than 50% in coordination of care (as documented) at patient's floor/unit and/or counseling patient: - Narrative A/P Narrative: A: *AECOPD (no home O2) w/hypercapnia w/(+)RSV: Baseline PCO2 around 55 based on . *acute on hypoxic/hypercapnic respiratory failure: -now on room air with sats low 90's *Acute on chronic systolic CHF (history of underlying NYHA class III heart failure ): follow with Dr. Diaz -echo (01/2019) EF 40-45%, -CXR improved *UTI (e. coli) on admit: *Leukocytosis, persistent: Afebrile, no bandemia, does not appear toxic, possible steroid induced, monitor *h/o Adrenal insufficiency: on hydrocortisone at home. *anemia, chronic: follows up with Dr. Caba oncology *CKD III: follows with Dr. Singer *GERD on PPI *Depression/Anxiety: *Dementia: Plan -Continue bronchodilators/steroids/pulmonary toilet/nebs -IV steroids (wean), and eventually to home regimen -empiric antibiotic coverage -IV diuretics -Follow-up CBC -Continue beta-alfredo/ASA/statin -Pre-existing medical condition management home medications -PT OT nutrition support -Discharge planning per case management -ppx: Heparin DNR
[2019-08-01] MEDS ORDERED: predniSONE 20 MG TABLET PO SCH (09:00)
[2019-08-01] MEDS ORDERED: POTASSIUM CHLORIDE 20 MEQ TABLET PO ONE (09:54)
[2019-08-01] MEDS: 0.9 % SODIUM CHLORIDE 500 ML IV SCH (10:17)
[2019-08-01] MEDS: traMADol 50 MG TABLET PO PRN (14:14)
[2019-08-01] MEDS: METOPROLOL SUCCINATE 25 MG TAB.XL.24H PO SCH (20:40)
[2019-08-01] MEDS: ATORVASTATIN 40 MG TABLET PO SCH (20:40)
[2019-08-01] MEDS: SENNOSIDES/DOCUSATE SODIUM 1 TAB TABLET PO SCH (20:40)
[2019-08-02] MEDS: 0.9 % SODIUM CHLORIDE 10 ML SYRINGE IV SCH ×4 (02:09→22:39)
[2019-08-02] MEDS: 0.9 % SODIUM CHLORIDE 500 ML IV SCH ×2 (02:09→22:44)
[2019-08-02 06:52] LABS: Hematocrit 34.9 % (34.1-44.9); Hemoglobin 9.8 g/dL (11.2-15.7); Mean Cell Volume 99.4 fL (80.0-100.0); Mean Corpuscular HGB Conc 28.1 g/dL (31.0-36.0); Mean Platelet Volume 11.2 fL (7.4-10.4); Platelet Count 144 K/mcL (140-440); RBC 3.51 M/mcL (3.59-5.38); Red Cell Distribution Width 23.9 % (11.5-14.5); WBC 13.2 K/mcL (4.50-11.00)
[2019-08-02 07:58] LABS: Anisocytosis 2+ (NONE SEEN); Eosinophils % (Manual) 1 % (0-7); Hypochromasia 1+ (NONE SEEN); Lymphocytes % 8 % (15-49); Monocytes % (Manual) 2 % (1-12); Platelet Estimate NORMAL (NORMAL); RBC Morphology ABNORM (NORMAL); Segmented Neutrophils % 89 % (38-78)
[2019-08-02 08:20] LABS: Blood Urea Nitrogen 23 mg/dl (8-23); Calcium 9.2 mg/dl (8.6-10.4); Chloride 96 mmol/L (96-108); Glomerular Filtration Rate 41; Glucose 91 mg/dL (70-105)
[2019-08-02 08:24] LABS: Carbon Dioxide 31 mmol/L (22-30)
[2019-08-02] MEDS ORDERED: predniSONE 20 MG TABLET PO SCH (09:00)
[2019-08-02] MEDS: HEPARIN 5,000 UNIT/ML VIAL SQ SCH ×2 (09:28→22:41)
[2019-08-02] MEDS: OMEPRAZOLE 20 MG CAPSULE PO SCH (09:28)
[2019-08-02] MEDS: DOCUSATE SODIUM 100 MG CAPSULE PO SCH ×2 (09:28→22:41)
[2019-08-02] MEDS: THIAMINE 100 MG TABLET PO SCH (09:28)
[2019-08-02] MEDS: MULTIVIT,THER IRON,CA,FA & MIN 1 TABLET PO SCH (09:28)
[2019-08-02] MEDS: FOLIC ACID 1 MG TABLET PO SCH (09:28)
[2019-08-02] MEDS: ASPIRIN 81 MG TAB.CHEW PO SCH (09:28)
[2019-08-02] MEDS: BACLOFEN 10 MG TABLET PO SCH ×2 (09:28→22:41)
[2019-08-02] MEDS: ESCITALOPRAM 10 MG TABLET PO SCH (09:28)
[2019-08-02] MEDS: LEVOFLOXACIN 750 MG/150 ML BAG IV SCH (10:50)
[2019-08-02] MEDS: IPRATROPIUM/ALBUTEROL 3 ML AMPUL.NEB NEB PRN ×2 (11:04→16:11)
[2019-08-02] MEDS ORDERED: HYDROCORTISONE 10 MG TABLET PO ONE (15:05)
--- NOTE | 2019-08-02 15:10 | Internal Med Progress Note ---
Medical - PN: Subj Patient information: Note initiated : 08/02/19 at 2:57 pm Service Date, if different from initiated Date: [] Patient: Glenis Rosario a 89 y/o F admitted on 07/29/19 for shortness of breath. Chief Complaint: [] Interval history: Ms. Rosario is a 89 year old F with a history of chronic kidney disease/iron deficiency anemia/adrenal insufficiency who presents to the ER directly from cardiology office visit today after she was found increasingly short of breath weak fatigued. Patient lives at assisted living at [place] and frequently eats will stop by her daughter Soumya who lives in [facility]. Patient's daughter noticed a steady decline in functionality over the last 4 days to the point she could barely function or get out of bed, patient also has associated cough along with shortness of breath and yellow productive sputum. However there is no associated fever chills or rashes. Initial work-up in the ER was consistent with hypoxic hypercapnic respiratory failure consistent with COPD exacerbation and chest imaging suggestive of fluid overload with CHF. White count 12.1 with ABG 7.49/45/77 on 2 L oxygen. Patient received a dose of Lasix along with bronchodilators with slight improvement. Subsequently hospitalist service was consulted At time evaluation patient is accompanied with her daughter Soumya. Patient is extremely fatigued lethargic unable to provide any history but was able to participate in review of systems. She denies sick contacts. She denies flulike symptoms. She endorses to cough but denies shaking chills, diarrhea, bloody stool, dysuria or abdominal pain. She further denies chest pain headache photophobia. 07/30-patient doing a lot better. More awake alert. Improved shortness of breath. Able to talk in full sentences. White count 12.9. Diuresed over 14,000 cc net negative fluid balance. Continuing steroids/antibiotics. Hemodynamic stable currently on 2 L oxygen. Potassium improved to 3.6. Creatinine 1.2. Continues PT OT/nutrition support 07/31 No new complaints overnight events. Shortness of breath improving. Good diuresis. Occasional cough. 08/01 Feeling better. Slept well. Breathing much improved. On room air at this time . Has occasional cough and headache but otherwise no complaints. 08/02 Patient weak and did have controlled fall yesterday. Moving okay today but is little bit sore and stiff from the fall. Reevaluating and likely need SNF before transition back to [facility]. cough occasionally productive of sputum. ABG with low O2. placed back on O2, lungs wheezy. more sleepy today. confusion last night and this morning. Review of Systems: denies headache/fever/chills/nausea/vomiting/chest or abdominal pain/diarrhea. Otherwise see above. - Constitutional Vitals: Vital Signs Temp Pulse Resp BP Pulse Ox 98.1 F 78 18 121/82 90 08/02/19 12:00 08/02/19 12:00 08/02/19 12:00 08/02/19 12:00 08/02/19 12:00 Period Temp Pulse Resp BP Sys/Pichardo Pulse Ox Last 24 Hr 97.2 F-98.3 F 70-78 12-20 116-136/72-86 90-97 Intake and Output 08/02/19 08/02/19 08/02/19 05:59 13:59 21:59 Intake Total 180 480 Output Total 200 300 Balance -20 180 Intake & Output: Intake & Output 08/02/19 08/02/19 08/02/19 05:59 13:59 21:59 Intake Total 180 480 Output Total 200 300 Balance -20 180 Intake: Oral 180 480 Output: Void Amount 200 300 Other: Meal Breakfast Percent of Meal Consumed 75% Feeding Ability Independent Urine Color Dark Yellow Urine Odor Strong Stool Size Moderate Moderate Stool Color Brown Brown Stool Consistency Soft Soft Formed Formed # Bowel Movements 1 Exam: General: Alert, Awake, No acute Distress Eyes/N/T: EOMI, Head/Neck: neck supple, CV: RRR, No murmurs, Pulm: mild diminished, b/l wheezing, no rhonchi, Abd: soft, nontender, +BS x4 Ext: no clubbing/cyanosis, 1-2+ b/l LE edema Neuro: Alert, no focal deficits, moves all extremities, Skin: warm/dry Medical - PN: Obj Da - Labs CBC & Chem 7: 08/02/19 05:10 08/02/19 06:54 Labs: Abnormal Lab Results 08/02/19 08/02/19 08/01/19 06:54 05:10 05:30 WBC 13.2 H RBC 3.51 L Hgb 9.8 L MCHC 28.1 L RDW 23.9 H Plt Count MPV 11.2 H Seg Neutrophils % 89 H Lymphocytes % 8 L RBC Morphology Abnorm A Polychromasia Hypochromasia 1+ A Anisocytosis 2+ A Macrocytosis Ovalocytes RBC Fragments Potassium 3.2 L Chloride 93 L Carbon Dioxide 31 H Creatinine 1.2 H Glucose 119 H Uric Acid Phosphorus 2.3 L GGT 82 H Alkaline Phosphatase 145 H Lactate Dehydrogenase 466 H Triglycerides 166 H 08/01/19 07/31/19 07/31/19 05:30 05:25 05:25 WBC 19.3 H 15.2 H RBC 3.50 L 3.57 L Hgb 9.7 L 9.9 L MCHC 27.8 L 28.9 L RDW 23.5 H 23.1 H Plt Count 108 L MPV 11.7 H 10.7 H Seg Neutrophils % 83 H 94 H Lymphocytes % 11 L 4 L RBC Morphology Abnorm A Abnorm A Polychromasia Few A 1+ A Hypochromasia Anisocytosis 3+ A 3+ A Macrocytosis Few A Ovalocytes Few A RBC Fragments Rare A Potassium Chloride Carbon Dioxide Creatinine 1.2 H Glucose 134 H Uric Acid 8.5 H Phosphorus GGT 86 H Alkaline Phosphatase 155 H Lactate Dehydrogenase 475 H Triglycerides Meds: Medications Acetaminophen (Tylenol) 650 mg PO Q4-6HP PRN; Protocol PRN Reason: Per Pain Protocol/Fever > 101 Last Admin: 07/31/19 21:41 Dose: 650 mg Documented by: Albuterol/Ipratropium (Duoneb) 3 ml NEB Q4HP PRN PRN Reason: Shortness Of Breath Or Wheezing Last Admin: 08/02/19 11:04 Dose: 3 ml Documented by: Aspirin (Aspirin) 162 mg PO QDAY [facility] Last Admin: 08/02/19 09:28 Dose: 162 mg Documented by: Atorvastatin Calcium (Lipitor) 40 mg PO HS [facility] Last Admin: 08/01/19 20:40 Dose: 40 mg Documented by: Baclofen (Lioresal) 10 mg PO BID [facility] Last Admin: 08/02/19 09:28 Dose: 10 mg Documented by: Benzonatate (Tessalon) 200 mg PO TIDP PRN PRN Reason: Cough Last Admin: 08/02/19 10:56 Dose: 200 mg Documented by: Bisacodyl (Dulcolax) 10 mg [place] Q2-3DAYS PRN PRN Reason: Constipation Docusate Sodium (Colace) 100 mg PO BID [facility] Last Admin: 08/02/19 09:28 Dose: 100 mg Documented by: Escitalopram Oxalate (Lexapro) 10 mg PO QDAY [facility] Last Admin: 08/02/19 09:28 Dose: 10 mg Documented by: Fexofenadine HCl (Kisha) 180 mg PO DAILYP PRN PRN Reason: Allergic Symptoms Folic Acid (Folic Acid) 1 mg PO DAILY [facility] Last Admin: 08/02/19 09:28 Dose: 1 mg Documented by: Heparin Sodium (Porcine) (Heparin) 5,000 unit SQ Q12 [facility] Last Admin: 08/02/19 09:28 Dose: 5,000 unit Documented by: Hydralazine HCl (Apresoline) 10 mg IV Q4-6HP PRN PRN Reason: Hypertension Acetaminophen (Ofirmev) 650 mg in 65 mls @ 130 mls/hr IV Q6HP PRN; Protocol PRN Reason: Per Pain Protocol/Fever > 101 Magnesium Sulfate (Magnesium Sulfate) 2 gm in 50 mls @ 50 mls/hr IV UD PRN PRN Reason: MG = or < 1.7 Levofloxacin (Levaquin) 750 mg in 150 mls @ 100 mls/hr IV Q48H [facility]; Protocol Last Admin: 08/02/19 10:50 Dose: 100 mls/hr Documented by: Sodium Chloride (Sodium Chloride 0.9%) 500 mls @ 20 mls/hr IV .Q24H [facility] Last Admin: 08/02/19 02:09 Dose: Not Given Documented by: Iron Carb/Multivit/Motor Pool Driver/Folic Acid (Multivitamin W/Minerals) 1 tab PO DAILY [facility] Last Admin: 08/02/19 09:28 Dose: 1 tab Documented by: Melatonin (Melatonin 3mg Tablet) 3 mg PO HSP PRN PRN Reason: Insomnia Metoprolol Succinate (Toprol Xl) 25 mg PO QHS [facility] Last Admin: 08/01/19 20:40 Dose: 25 mg Documented by: Metoprolol Tartrate (Lopressor) 5 mg IV Q5M PRN PRN Reason: Heart Rate > 140 bpm Nitroglycerin (Nitrostat) 0.4 mg SL Q5M PRN PRN Reason: Chest Pain Omeprazole (Prilosec) 20 mg PO QAMAC [facility] Last Admin: 08/02/19 09:28 Dose: 20 mg Documented by: Ondansetron HCl (Zofran Odt) 4 mg SL Q4-6HP PRN; Protocol PRN Reason: Nausea And Vomiting Ondansetron HCl (Zofran) 4 mg IV Q4-6HP PRN; Protocol PRN Reason: Nausea And Vomiting Polyethylene Glycol (Miralax) 17 gm PO DAILYP PRN PRN Reason: Constipation Potassium Chloride (Klor-Con) 40 meq PO DAILYP PRN PRN Reason: K+ < 3.5 Last Admin: 08/02/19 10:50 Dose: 40 meq Documented by: Senna/Docusate Sodium (Senna Plus Tablet) 1 tab PO HS [facility] Last Admin: 08/01/19 20:40 Dose: 1 tab Documented by: Sodium Chloride (Saline Flush) 10 ml IV Q8 [facility] Last Admin: 08/02/19 13:51 Dose: Not Given Documented by: Thiamine HCl (Vitamin B1) 100 mg PO DAILY [facility] Last Admin: 08/02/19 09:28 Dose: 100 mg Documented by: Tramadol HCl (Ultram) 50 mg PO Q8HP PRN PRN Reason: Pain Last Admin: 08/01/19 14:14 Dose: 50 mg Documented by: Medical - PN: A/P - Time Spent With Patient Total time spent is greater than 50% in coordination of care (as documented) at patient's floor/unit and/or counseling patient: - Narrative A/P Narrative: A: *AECOPD (no home O2) w/(+)RSV: *Acute on chronic systolic CHF (history of underlying NYHA class III heart failure ): follow with Dr. Diaz -echo (01/2019) EF 40-45%, -CXR improved *acute on hypoxic/hypercapnic respiratory failure: 2/2 above -now on room air with sats low 90's *UTI (e. coli) on admit: *Leukocytosis, persistent: Afebrile, no bandemia, does not appear toxic, likely induced. Improved *h/o Adrenal insufficiency: on hydrocortisone at home. *anemia, chronic: follows up with Dr. Caba oncology *CKD III: follows with Dr. Singer *GERD on PPI *Depression/Anxiety: *Dementia: *Gen weak/deconditioning Plan -Continue bronchodilators/steroids(wean)/pulmonary toilet/nebs - -empiric levaquin to cover pulm and -PO lasix -Continue beta-alfredo/ASA/statin -PT OT nutrition support -Discharge to SNF -ppx: Heparin/home ppi DNR
[2019-08-02] MEDS: traMADol 50 MG TABLET PO PRN (15:23)
[2019-08-02] MEDS ORDERED: predniSONE 20 MG TABLET PO ONE (15:39)
[2019-08-02] MEDS: HYDROCORTISONE 10 MG TABLET PO SCH (22:41)
[2019-08-02] MEDS: SENNOSIDES/DOCUSATE SODIUM 1 TAB TABLET PO SCH (22:42)
[2019-08-02] MEDS: ATORVASTATIN 40 MG TABLET PO SCH (22:42)
[2019-08-02] MEDS: METOPROLOL SUCCINATE 25 MG TAB.XL.24H PO SCH (22:42)
[2019-08-03] MEDS: 0.9 % SODIUM CHLORIDE 10 ML SYRINGE IV SCH (07:02)
--- NOTE | 2019-08-03 07:03 | Internal Med Progress Note ---
Medical - PN: Subj Patient information: Note initiated : 08/03/19 at 7:02 am Service Date, if different from initiated Date: [] Patient: Glenis Rosario a 89 y/o F admitted on 07/29/19 for shortness of breath. Chief Complaint: [] Interval history: Ms. Rosario is a 89 year old F with a history of chronic kidney disease/iron deficiency anemia/adrenal insufficiency who presents to the ER directly from cardiology office visit today after she was found increasingly short of breath weak fatigued. Patient lives at assisted living at [place] and frequently eats will stop by her daughter Soumya who lives in [facility]. Patient's daughter noticed a steady decline in functionality over the last 4 days to the point she could barely function or get out of bed, patient also has associated cough along with shortness of breath and yellow productive sputum. However there is no associated fever chills or rashes. Initial work-up in the ER was consistent with hypoxic hypercapnic respiratory failure consistent with COPD exacerbation and chest imaging suggestive of fluid overload with CHF. White count 12.1 with ABG 7.49/45/77 on 2 L oxygen. Patient received a dose of Lasix along with bronchodilators with slight improvement. Subsequently hospitalist service was consulted At time evaluation patient is accompanied with her daughter Soumya. Patient is extremely fatigued lethargic unable to provide any history but was able to participate in review of systems. She denies sick contacts. She denies flulike symptoms. She endorses to cough but denies shaking chills, diarrhea, bloody stool, dysuria or abdominal pain. She further denies chest pain headache photophobia. 07/30-patient doing a lot better. More awake alert. Improved shortness of breath. Able to talk in full sentences. White count 12.9. Diuresed over 14,000 cc net negative fluid balance. Continuing steroids/antibiotics. Hemodynamic stable currently on 2 L oxygen. Potassium improved to 3.6. Creatinine 1.2. Continues PT OT/nutrition support 07/31 No new complaints overnight events. Shortness of breath improving. Good diuresis. Occasional cough. 08/01 Feeling better. Slept well. Breathing much improved. On room air at this time . Has occasional cough and headache but otherwise no complaints. 08/02 Patient weak and did have controlled fall yesterday. Moving okay today but is little bit sore and stiff from the fall. Reevaluating and likely need SNF before transition back to [facility]. cough occasionally productive of sputum. ABG with low O2. placed back on O2, lungs wheezy. more sleepy today. confusion last night and this morning. 08/03 Has occasional cough. She says better than yesterday. Shortness of breath is continuing to improve. Per notes rested well last night. Has occasional headache Review of Systems: denies /fever/chills/nausea/vomiting/chest or abdominal pain/diarrhea. Otherwise see above. - Constitutional Vitals: Vital Signs Temp Pulse Resp BP Pulse Ox 97.1 F 67 14 126/83 98 08/03/19 04:23 08/03/19 04:23 08/03/19 04:23 08/03/19 04:23 08/03/19 04:23 Period Temp Pulse Resp BP Sys/Pichardo Pulse Ox Last 24 Hr 96.5 F-98.1 F 67-78 12-18 119-126/77-84 90-100 Intake and Output 08/02/19 08/03/19 08/03/19 21:59 05:59 13:59 Intake Total 75 Output Total 200 450 Balance -200 -375 Weight 79.742 kg Intake & Output: Intake & Output 08/02/19 08/03/19 08/03/19 21:59 05:59 13:59 Intake Total 75 Output Total 200 450 Balance -200 -375 Weight 79.742 kg Intake: Oral 75 Output: Void Amount 200 450 Other: Meal Dinner Percent of Meal Consumed 0% # Voids 1 Exam: General: Alert, Awake, No acute Distress Eyes/N/T: EOMI, Head/Neck: neck supple, CV: RRR, No murmurs, Pulm: mild diminished, b/l mild rhonchi, no wheezing today Abd: soft, nontender, +BS x4 Ext: no clubbing/cyanosis, 1-2+ b/l LE edema Neuro: Alert, no focal deficits, moves all extremities, Skin: warm/dry Medical - PN: Obj Da - Labs CBC & Chem 7: 08/03/19 05:08 08/02/19 06:54 Labs: Abnormal Lab Results 08/02/19 08/02/19 08/01/19 06:54 05:10 05:30 WBC 13.2 H RBC 3.51 L Hgb 9.8 L MCHC 28.1 L RDW 23.9 H Plt Count MPV 11.2 H Seg Neutrophils % 89 H Lymphocytes % 8 L RBC Morphology Abnorm A Polychromasia Hypochromasia 1+ A Anisocytosis 2+ A Macrocytosis Ovalocytes RBC Fragments Potassium 3.2 L Chloride 93 L Carbon Dioxide 31 H Creatinine 1.2 H Glucose 119 H Uric Acid Phosphorus 2.3 L GGT 82 H Alkaline Phosphatase 145 H Lactate Dehydrogenase 466 H Triglycerides 166 H 08/01/19 07/31/19 07/31/19 05:30 05:25 05:25 WBC 19.3 H 15.2 H RBC 3.50 L 3.57 L Hgb 9.7 L 9.9 L MCHC 27.8 L 28.9 L RDW 23.5 H 23.1 H Plt Count 108 L MPV 11.7 H 10.7 H Seg Neutrophils % 83 H 94 H Lymphocytes % 11 L 4 L RBC Morphology Abnorm A Abnorm A Polychromasia Few A 1+ A Hypochromasia Anisocytosis 3+ A 3+ A Macrocytosis Few A Ovalocytes Few A RBC Fragments Rare A Potassium Chloride Carbon Dioxide Creatinine 1.2 H Glucose 134 H Uric Acid 8.5 H Phosphorus GGT 86 H Alkaline Phosphatase 155 H Lactate Dehydrogenase 475 H Triglycerides Meds: Medications Acetaminophen (Tylenol) 650 mg PO Q4-6HP PRN; Protocol PRN Reason: Per Pain Protocol/Fever > 101 Last Admin: 07/31/19 21:41 Dose: 650 mg Documented by: Albuterol/Ipratropium (Duoneb) 3 ml NEB Q4HP PRN PRN Reason: Shortness Of Breath Or Wheezing Last Admin: 08/02/19 16:11 Dose: 3 ml Documented by: Aspirin (Aspirin) 162 mg PO QDAY [facility] Last Admin: 08/02/19 09:28 Dose: 162 mg Documented by: Atorvastatin Calcium (Lipitor) 40 mg PO HS [facility] Last Admin: 08/02/19 22:42 Dose: Not Given Documented by: Baclofen (Lioresal) 10 mg PO BID [facility] Last Admin: 08/02/19 22:41 Dose: Not Given Documented by: Benzonatate (Tessalon) 200 mg PO TIDP PRN PRN Reason: Cough Last Admin: 01/27/20 10:56 Dose: 200 mg Documented by: Bisacodyl (Dulcolax) 10 mg PA Q2-3DAYS PRN PRN Reason: Constipation Docusate Sodium (Colace) 100 mg PO BID [facility] Last Admin: 08/02/19 22:41 Dose: Not Given Documented by: Escitalopram Oxalate (Lexapro) 10 mg PO QDAY [facility] Last Admin: 08/02/19 09:28 Dose: 10 mg Documented by: Fexofenadine HCl (Kisha) 180 mg PO DAILYP PRN PRN Reason: Allergic Symptoms Folic Acid (Folic Acid) 1 mg PO DAILY [facility] Last Admin: 08/02/19 09:28 Dose: 1 mg Documented by: Furosemide (Lasix) 40 mg PO DAILY [facility] Heparin Sodium (Porcine) (Heparin) 5,000 unit SQ Q12 [facility] Last Admin: 08/02/19 22:41 Dose: Not Given Documented by: Hydralazine HCl (Apresoline) 10 mg IV Q4-6HP PRN PRN Reason: Hypertension Hydrocortisone (Cortef) 15 mg PO BID [facility] Last Admin: 08/02/19 22:41 Dose: Not Given Documented by: Acetaminophen (Ofirmev) 650 mg in 65 mls @ 130 mls/hr IV Q6HP PRN; Protocol PRN Reason: Per Pain Protocol/Fever > 101 Magnesium Sulfate (Magnesium Sulfate) 2 gm in 50 mls @ 50 mls/hr IV UD PRN PRN Reason: MG = or < 1.7 Levofloxacin (Levaquin) 750 mg in 150 mls @ 100 mls/hr IV Q48H [facility]; Protocol Last Admin: 08/02/19 10:50 Dose: 100 mls/hr Documented by: Sodium Chloride (Sodium Chloride 0.9%) 500 mls @ 20 mls/hr IV .Q24H [facility] Last Admin: 08/02/19 22:44 Dose: 20 mls/hr Documented by: Iron Carb/Multivit/Sarpy/Folic Acid (Multivitamin W/Minerals) 1 tab PO DAILY [facility] Last Admin: 08/02/19 09:28 Dose: 1 tab Documented by: Melatonin (Melatonin 3mg Tablet) 3 mg PO HSP PRN PRN Reason: Insomnia Metoprolol Succinate (Toprol Xl) 25 mg PO QHS [facility] Last Admin: 08/02/19 22:42 Dose: Not Given Documented by: Metoprolol Tartrate (Lopressor) 5 mg IV Q5M PRN PRN Reason: Heart Rate > 140 bpm Nitroglycerin (Nitrostat) 0.4 mg SL Q5M PRN PRN Reason: Chest Pain Omeprazole (Prilosec) 20 mg PO QAMAC [facility] Last Admin: 08/02/19 09:28 Dose: 20 mg Documented by: Ondansetron HCl (Zofran Odt) 4 mg SL Q4-6HP PRN; Protocol PRN Reason: Nausea And Vomiting Ondansetron HCl (Zofran) 4 mg IV Q4-6HP PRN; Protocol PRN Reason: Nausea And Vomiting Polyethylene Glycol (Miralax) 17 gm PO DAILYP PRN PRN Reason: Constipation Potassium Chloride (Klor-Con) 40 meq PO DAILYP PRN PRN Reason: K+ < 3.5 Last Admin: 08/02/19 10:50 Dose: 40 meq Documented by: Senna/Docusate Sodium (Senna Plus Tablet) 1 tab PO HS [facility] Last Admin: 08/02/19 22:42 Dose: Not Given Documented by: Sodium Chloride (Saline Flush) 10 ml IV Q8 [facility] Last Admin: 08/02/19 22:39 Dose: Not Given Documented by: Thiamine HCl (Vitamin B1) 100 mg PO DAILY [facility] Last Admin: 08/02/19 09:28 Dose: 100 mg Documented by: Tramadol HCl (Ultram) 50 mg PO Q8HP PRN PRN Reason: Pain Last Admin: 08/02/19 15:23 Dose: 50 mg Documented by: Medical - PN: A/P - Time Spent With Patient Total time spent is greater than 50% in coordination of care (as documented) at patient's floor/unit and/or counseling patient: - Narrative A/P Narrative: A: *AECOPD (no home O2) w/(+)RSV: *Acute on chronic systolic CHF (history of underlying NYHA class III heart failure ): follow with Dr. Diaz -echo (01/2019) EF 40-45%, -CXR improved *acute on hypoxic/hypercapnic respiratory failure: 2/2 above - *UTI (e. coli) on admit: *Leukocytosis, persistent: Afebrile, no bandemia, does not appear toxic, likely induced. Now Improved *h/o Adrenal insufficiency: on hydrocortisone at home. *anemia, chronic: follows up with Dr. Caba oncology *CKD III: follows with Dr. Singer *GERD on PPI *Depression/Anxiety: *Dementia: *Gen weak/deconditioning Plan -Continue bronchodilators/steroids(wean)/pulmonary toilet/nebs - -empiric levaquin to cover pulm and d/c today -PO lasix -Continue beta-alfredo/ASA/statin -PT OT nutrition support -Discharge to SNF -ppx: Heparin/home ppi DNR
[2019-08-03] MEDS: OMEPRAZOLE 20 MG CAPSULE PO SCH (07:51)
[2019-08-03] MEDS ORDERED: BENZONATATE 100 MG CAPSULE PO ONE (07:57)
[2019-08-03] MEDS ORDERED: predniSONE 20 MG TABLET PO ONE (07:58)
[2019-08-03] MEDS ORDERED: FUROSEMIDE 40 MG TABLET PO SCH (09:00)
[2019-08-03] MEDS: HYDROCORTISONE 10 MG TABLET PO SCH (09:24)
[2019-08-03] MEDS: MULTIVIT,THER IRON,CA,FA & MIN 1 TABLET PO SCH (09:24)
[2019-08-03] MEDS: THIAMINE 100 MG TABLET PO SCH (09:24)
[2019-08-03] MEDS: BACLOFEN 10 MG TABLET PO SCH (09:24)
[2019-08-03] MEDS: ASPIRIN 81 MG TAB.CHEW PO SCH (09:24)
[2019-08-03] MEDS: ESCITALOPRAM 10 MG TABLET PO SCH (09:24)
[2019-08-03] MEDS: DOCUSATE SODIUM 100 MG CAPSULE PO SCH (09:24)
[2019-08-03] MEDS: FOLIC ACID 1 MG TABLET PO SCH (09:25)
[2019-08-03] MEDS: HEPARIN 5,000 UNIT/ML VIAL SQ SCH (09:29)
[2019-08-03] MEDS: traMADol 50 MG TABLET PO PRN (13:34)
[2019-08-03] MEDS ORDERED: HYDROCORTISONE 10 MG TABLET PO ONE (15:05)
== END 2019-08-03 13:35 | DRG 190 ==
LOC: ED 14:32 → MEDSUR 20:10
PROVIDERS: ADMIT Internal Medicine; ATTEND Internal Medicine